=== PATIENT | male | born 1985 | race Caucasian/White ===

== ENCOUNTER 2016-12-14 10:39 | Emergency (ER) | payer BC, OTHER ==
[~2016-12-14] VITALS: Ht 182.9 cm; Wt 91.4 kg
[2016-12-14 10:43] VITALS: TEMP 36.8; Ht 182.9 cm; Wt 91.4 kg
[2016-12-14] MEDS ORDERED: AMOXICILLIN/CLAVULANATE TAB 875 MG TAB PO ONE (11:15)
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
[2016-12-14] MEDS ORDERED: AMOX875T PO (14:25)
[2016-12-14] MEDS ORDERED: OXYC1TAB3 PO (14:25)
[2016-12-14 14:50] VITALS: BP 160/97; PULSE 94; O2SAT 98
[2017-05-04] MEDS ORDERED: OXYC1TAB3 PO (07:52)
[2017-05-04] MEDS ORDERED: CIPR-255 PO (07:52)
[2017-05-04] MEDS ORDERED: METR-163 PO (07:52)
== END 2016-12-14 14:53 | disposition home or self-care (01) ==
LOC: C.EDB 10:41 → C.EDC 14:53
DX: S02.32XA Fracture of orbital floor, left side, initial encounter for closed fracture (principal); T79.7XXA Traumatic subcutaneous emphysema, initial encounter; S00.83XA Contusion of other part of head, initial encounter; W22.8XXA Striking against or struck by other objects, initial encounter; F17.200 Nicotine dependence, unspecified, uncomplicated

== ENCOUNTER 2017-03-27 18:55 | Emergency (ER) | payer BC ==
[~2017-03-27] VITALS: Ht 182.9 cm; Wt 93.1 kg
[~2017-03-27 18:55] MED LIST: OXYC1TAB3 PO
[2017-03-27 18:59] VITALS: TEMP 36.8; Ht 182.9 cm; Wt 93.1 kg
[2017-03-27] MEDS ORDERED: OXYCODONE/ACETAMINOPHEN 5-325 TAB PO STA (19:43)
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
--- NOTE | 2017-03-27 20:35 | DIAGNOSTIC IMAGING REPORT ---
MAXILLOFACIAL CT WITHOUT CONTRAST CLINICAL HISTORY: Trauma. Possible mandibular fracture. COMPARISON STUDY: Maxillofacial CT December 14, 2016. TECHNIQUE: A maxillofacial CT was performed without IV contrast. Coronal and sagittal reformats were viewed. FINDINGS: Note is made of an acute minimally displaced, comminuted left parasymphyseal mandibular fracture which extends between the left lateral mandibular incisor and the canine. In addition, there is an acute nondisplaced fracture of the left mandibular ramus. Alignment of the temporomandibular joints is anatomic. There are no skull base fractures. There is a defect within the left orbital floor which is old. The globes are intact. There is mild mucosal thickening of the sinuses. IMPRESSION: Acute minimally displaced mildly comminuted left parasymphyseal mandibular fracture and nondisplaced left mandibular ramus fracture. Electronically signed by: Jimenez Pierre M.D. 03/27/2017 8:34 PM Dictated Date/Time: 03/27/2017 8:26 PM
[2017-03-27] MEDS ORDERED: AMOX875T PO (21:24)
[2017-03-27] MEDS ORDERED: OXYC-57 PO (21:24)
[2017-03-27] MEDS ORDERED: PERCOCET HOME PACK PO ONE (21:30)
[2017-03-27] MEDS ORDERED: CEFTRIAXONE SOD 350MG/ML 1 GM VIAL IM ONE (21:30)
[2017-03-27 21:55] VITALS: BP 153/105; PULSE 76; O2SAT 98
[2017-05-04] MEDS ORDERED: OXYC1TAB3 PO (07:52)
[2017-05-04] MEDS ORDERED: CIPR-255 PO (07:52)
[2017-05-04] MEDS ORDERED: METR-163 PO (07:52)
== END 2017-03-27 21:55 | disposition home or self-care (01) ==
LOC: C.EDB 18:56 → C.EDD 21:55
DX: S02.609A Fracture of mandible, unspecified, initial encounter for closed fracture (principal); Y09 Assault by unspecified means

== ENCOUNTER 2017-05-01 09:25 | Emergency (ER) | payer BC ==
[~2017-05-01] VITALS: Ht 182.9 cm; Wt 88.2 kg
[~2017-05-01 09:25] MED LIST changes: +OXYC-57 PO; -OXYC1TAB3 PO
[2017-05-01 09:27] VITALS: TEMP 36.4; Ht 182.9 cm; Wt 88.2 kg
[2017-05-01] MEDS ORDERED: ONDANSETRON INJ 2 MG/ML 2 ML VIAL IV STA (09:58)
[2017-05-01] MEDS ORDERED: MoRPHine SULFATE 4 MG/ML 1 ML CARP\\VIAL IV STA (09:58)
[2017-05-01] MEDS ORDERED: KETOROLAC TROMETHAMINE 30 MG/ML VIAL IV STA (09:58)
[2017-05-01] MEDS ORDERED: SODIUM CHLORIDE 0.9% 1000ML 1,000 ML IV STA (09:58)
--- NOTE | 2017-05-01 10:08 | EMERGENCY ROOM VISIT NOTE ---
History First contact with patient: 09:46 Chief Complaint: ABDOMINAL PAIN Stated Complaint: STOMACH PAIN Nursing Triage Summary: pt reports left lower abd pain started at 0530 this am awoke him from sleep. did not take anything for pain History of Present Illness The patient is a 31 year old male who presents to the Emergency Room with complaints of "stomach pain". The patient states that acutely, he woke this morning around 5:30 AM with left lower quadrant abdominal pain. This is associated with radiation into his left testicle. He describes as a shooting pain, rated as a 65/10. He states that recently he fractured his jaw, and had to take antibiotics and his also has C. difficile. However, he denies any nausea, vomiting, fevers, chills or diarrhea. He did have to recent bowel movements of which were normal for him. He denies any night sweats, or chest pain. He notes that he has difficulty achieving a position that is comfortable. And he also denies any constipation. He has had no pain medication thus far today. Review of Systems A complete 10-point Review of Systems was discussed with the patient, with pertinent positives and negatives listed in the History of Present Illness. All remaining Review of Systems questions can be considered negative unless otherwise specified. Past Medical/Surgical History Medical Problems: (1) Finger laceration (2) Vasovagal syncope (3) Vasovagal syncope Family History Patient reports no known family medical history. Unremarkable. Social History Smoking Status: Never Smoker Alcohol Use: occasionally Drug Use: none Housing Status: lives with significant other Occupation Status: employed Current/Historical Medications Scheduled Amoxicillin & Pot Clavulanate (Augmentin 875-125 mg), 1 TAB PO BID Ondasetron Odt (Zofran Odt), 4 MG SL Q6H Scheduled PRN Oxycodone Ir (Roxicodone Ir), 1-2 TAB PO Q4H PRN for Pain Allergies Coded Allergies: No Known Allergies (Unverified , 05/01/17) Physical Exam Vital Signs Date Time Temp Pulse Resp B/P (MAP) Pulse Ox O2 Delivery O2 Flow Rate FiO2 05/01/17 11:30 63 18 132/71 100 Room Air 05/01/17 09:27 36.4 90 18 125/74 96 Room Air Physical Exam VITAL SIGNS - Vital signs and nursing notes were reviewed. Stable. GENERAL - 31-year-old male appearing his stated age who is in no acute distress. Communicates well with provider and answers questions appropriately. SKIN - Without rashes. No petechial rash. HEAD - NC/AT. EYES - PERRL with EOMI bilaterally. Sclera anicteric. EARS - No deformities of external structures noted on gross examination bilaterally. NOSE - Midline and without cyanosis. No epistaxis or purulent drainage noted. Septum midline without deviation or septal hematoma noted. MOUTH/OROPHARYNX - Without perioral cyanosis. Buccal mucosa pink and moist and without leukoplakia. Tongue midline with equal elevation of palate bilaterally. No tonsillar hypertrophy, erythema, or exudates noted. NECK - Neck with FROM. Supple to palpation. No lymphadenopathy noted. No nuchal rigidity. LUNGS - Chest wall symmetric without accessory muscle use, intercostals retractions, or central cyanosis. Normal vesicular breath sounds CTA B/L. No wheezes, rales, or rhonchi appreciated. CARDIAC - RRR with S1/S2. No murmur, rubs, or gallops appreciated. ABDOMEN - Abdominal contour without pulsations or visible masses. BS normoactive all four quadrants. There is LLQ abdominal tenderness. No palpable masses, hepatosplenomegaly, or ascites noted. EXTREMITIES - No clubbing or peripheral cyanosis. No pretibial edema present. NEUROLOGIC - Cranial nerves II through XII grossly intact. Sensory intact to light touch throughout. . PSYCH - A&O and cooperates fully with examiner. Pt is very pleasant and interacts well with examiner. Medical Decision & Procedures ER Provider Diagnostic Interpretation: CT SCAN OF THE ABDOMEN AND PELVIS WITHOUT IV CONTRAST CLINICAL HISTORY: Left lower quadrant abdominal pain. COMPARISON STUDY: No priors. TECHNIQUE: CT scan of the abdomen and pelvis is performed from the lung bases to the proximal femora. Images are reviewed in the axial, sagittal, and coronal planes. IV contrast was not administered for this examination as per the referring clinician. Note that the examination was performed in suboptimal fashion without oral and IV contrast. Automated dose control exposure was utilized. A dose lowering technique was utilized adhering to the principles of ALARA. CT DOSE: 1170.22 mGy.cm FINDINGS: Lung bases: The heart is normal in size and without pericardial effusion. The lung bases are clear noting left basilar atelectasis. Liver: The unenhanced liver is normal in size and contour. The liver demonstrates diffusely diminished attenuation consistent with hepatic steatosis. Fatty sparing is seen adjacent to gallbladder fossa. There is no intrahepatic biliary ductal dilatation. Gallbladder: Unremarkable. Spleen: Normal in size and attenuation. Pancreas: Unremarkable. Adrenal glands: Unremarkable. Kidneys: The unenhanced kidneys are normal in size and without hydronephrosis. There are no renal calculi identified. There is no evidence of contour deforming renal mass lesion. Abdominal vasculature: The abdominal aorta is normal in course and caliber. Bowel: The small bowel and colon are normal in course and caliber. There is mild diverticulosis of left colon. There is wall thickening with pericolonic inflammation and trace fluid seen involving the distal descending/proximal sigmoid colon consistent with acute diverticulitis. There is no evidence of abscess on this unenhanced examination. The appendix is well-visualized and normal. Peritoneum: There is no intraperitoneal free air or abdominal ascites. There is a small fat-containing umbilical hernia. Lymphadenopathy: None. Pelvic viscera: The bladder, prostate, and seminal vesicles are normal as visualized. Skeletal structures: No lytic or blastic lesions are seen. IMPRESSION: 1. Suboptimal examination without oral and IV contrast. 2. Findings are consistent with acute diverticulitis involving the distal descending/proximal sigmoid colon. No intraperitoneal free air is seen and there is no evidence of diverticular abscess. 3. Hepatic steatosis. Electronically signed by: Castro Islas M.D. 05/01/2017 11:31 AM Dictated Date/Time: 05/01/2017 11:17 AM Laboratory Results 05/01/17 09:59 Red Blood Count 4.91, Mean Corpuscular Volume 86.4, Mean Corpuscular Hemoglobin 29.5, Mean Corpuscular Hemoglobin Concent 34.2, Mean Platelet Volume 10.5, Neutrophils (%) (Auto) 72.9, Lymphocytes (%) (Auto) 18.2, Monocytes (%) (Auto) 7.6, Eosinophils (%) (Auto) 0.8, Basophils (%) (Auto) 0.2, Neutrophils # (Auto) 7.80, Lymphocytes # (Auto) 1.95, Monocytes # (Auto) 0.81, Eosinophils # (Auto) 0.09, Basophils # (Auto) 0.02 05/01/17 09:59 Test 05/01/17 09:59 05/01/17 10:20 White Blood Count 10.70 K/uL (4.8-10.8) Red Blood Count 4.91 M/uL (4.7-6.1) Hemoglobin 14.5 g/dL (14.0-18.0) Hematocrit 42.4 % (42-52) Mean Corpuscular Volume 86.4 fL (80-100) Mean Corpuscular Hemoglobin 29.5 pg (25-34) Mean Corpuscular Hemoglobin Concent 34.2 g/dl (32-36) Platelet Count 215 K/uL (130-400) Mean Platelet Volume 10.5 fL (7.4-10.4) Neutrophils (%) (Auto) 72.9 % Lymphocytes (%) (Auto) 18.2 % Monocytes (%) (Auto) 7.6 % Eosinophils (%) (Auto) 0.8 % Basophils (%) (Auto) 0.2 % Neutrophils # (Auto) 7.80 K/uL (1.4-6.5) Lymphocytes # (Auto) 1.95 K/uL (1.2-3.4) Monocytes # (Auto) 0.81 K/uL (0.11-0.59) Eosinophils # (Auto) 0.09 K/uL (0-0.5) Basophils # (Auto) 0.02 K/uL (0-0.2) RDW Standard Deviation 38.9 fL (36.4-46.3) RDW Coefficient of Variation 12.2 % (11.5-14.5) Immature Granulocyte % (Auto) 0.3 % Immature Granulocyte # (Auto) 0.03 K/uL (0.00-0.02) Prothrombin Time 10.3 SECONDS (9.0-12.0) Prothromb Time International Ratio 1.0 (0.9-1.1) Activated Partial Thromboplast Time 26.3 SECONDS (21.0-31.0) Partial Thromboplastin Ratio 1.0 Anion Gap 7.0 mmol/L (3-11) Est Creatinine Clear Calc Drug Dose 161.0 ml/min Estimated GFR () 143.3 Estimated GFR (Non- 123.6 BUN/Creatinine Ratio 16.3 (10-20) Calcium Level 9.1 mg/dl (8.5-10.1) Magnesium Level 1.8 mg/dl (1.8-2.4) Total Bilirubin 0.8 mg/dl (0.2-1) Aspartate Amino Transf (AST/SGOT) 13 U/L (15-37) Alanine Aminotransferase (ALT/SGPT) 31 U/L (12-78) Alkaline Phosphatase 104 U/L (45-117) Total Protein 6.9 gm/dl (6.4-8.2) Albumin 3.9 gm/dl (3.4-5.0) Globulin 3.0 gm/dl (2.5-4.0) Albumin/Globulin Ratio 1.3 (0.9-2) Urine Color YELLOW Urine Appearance CLEAR (CLEAR) Urine pH 5.5 (4.5-7.5) Urine Specific [place] 1.019 (1.000-1.030) Urine Protein NEG (NEG) Urine Glucose (UA) TRACE (NEG) Urine Ketones NEG (NEG) Urine Occult Blood TRACE (NEG) Urine Nitrite NEG (NEG) Urine Bilirubin NEG (NEG) Urine Urobilinogen NEG (NEG) Urine Leukocyte Esterase NEG (NEG) Urine WBC (Auto) 0 /hpf (0-5) Urine RBC (Auto) 0-4 /hpf (0-4) Urine Hyaline Casts (Auto) 1-5 /lpf (0-5) Urine Epithelial Cells (Auto) 0-5 /lpf (0-5) Urine Bacteria (Auto) NEG (NEG) Medications Administered Medications (Trade) Dose Ordered Sig/Genet Route Start Time Stop Time Status Last Admin Dose Admin Ketorolac Tromethamine (Toradol Inj) 30 mg NOW STAT IV 05/01/17 09:58 05/01/17 10:04 DC 05/01/17 10:19 30 MG Morphine Sulfate (MoRPHine SULFATE INJ) 4 mg NOW STAT IV 05/01/17 09:58 05/01/17 10:04 DC 05/01/17 10:20 4 MG Ondansetron HCl (Zofran Inj) 4 mg NOW STAT IV 05/01/17 09:58 05/01/17 10:04 DC 05/01/17 10:19 4 MG Sodium Chloride 1,000 ml @ 999 mls/hr Q1H1M STAT IV 05/01/17 09:58 05/01/17 10:58 DC 05/01/17 10:18 999 MLS/HR Medical Decision Patient was seen and evaluated as above. After obtaining a thorough history and physical examination IV access is initiated, and the above workup was performed. The patient presents to us today with left lower quadrant abdominal pain of sudden onset at 5 AM this morning. He has a noncontributory past medical and family history. There is no history of renal calculi. Patient was given morphine and Zofran here as well as Toradol for his pain. He was reevaluated and is feeling pain-free. CBC reveals no leukocytosis or anemia. Coags negative. Chemistry panel reveals chloride 108, random glucose of 102, AST low at 13. Urine reveals trace occult blood. He is to follow up regarding this as he is a smoker. Abdomen and pelvis CT reveal diverticulitis. No evidence of abscess. Noncontrast study was obtained to evaluate for renal calculi. He was offered inpatient management secondary to a lot of pain had upon presentation, but respectfully declined noting that he would prefer to be at home and return if worsening. He'll be discharged home on Augmentin as well as pain medication. Case was discussed with the attending physician. He is to follow up with family doctor regarding today's visit. He was educated upon worrisome symptoms which to return, educated upon incidental findings, had questions on discharge, and was discharged home in good condition. In evaluation treatment this patient following differential diagnoses were entertained: Renal calculi, acute diverticulitis, epiploic appendicitis, mesenteric adenitis, mesenteric ischemia, among others. Prior to the end of my shift, I was called by the patient who noted that he was feeling nauseated, and was vomiting. He requested Zofran as he has this here in the emergency department as it had been beneficial for him. I agreed to write a prescription, and gave him the instructions verbally. I informed him however that if he has worsening symptoms he certainly should return. He verbalized understanding. Impression Primary Impression: Acute diverticulitis Departure Information Dispostion Home / Self-Care Condition GOOD Prescriptions Ondasetron Odt (ZOFRAN ODT) 4 Mg Tab 4 MG SL Q6H for Nausea, #20 TAB Prov: Gerber Lea PA-C 05/01/17 Oxycodone Ir (Roxicodone Ir) 5 Mg Tab 1-2 TAB PO Q4H Y for Pain, #15 TAB For Initial Treatment Prov: Gerber Lea PA-C 05/01/17 Amoxicillin & Pot Clavulanate (Augmentin 875-125 mg) 1 Tab Tab 1 TAB PO BID for 10 Days, #20 TAB Prov: Gerber Lea PA-C 05/01/17 Referrals No Doctor, Assigned (PCP) Patient Instructions Diverticulitis Dc, ED Andrez Beltran, My [facility] Additional Instructions You have been treated in the Emergency Department your Abdominal Pain. Laboratory results and imaging studies have indicated you have was called acute diverticulitis. Please refer to attached handouts regarding bland diet and diverticulitis. You were prescribed Augmentin. This is one tablet every 12 hours for 10 days. This is an antibiotic. You have been prescribed Oxy IR to be used for pain control. This is a narcotic medication. You cannot drive or consume alcohol while on this medicine. This medicine should only be used for pain that cannot be controlled with over-the- counter pain medicines. For pain control, you can use the following [id number] medicines (if >12 yo): - Regular strength (325mg/tab) Tylenol (acetaminophen) 2 tabs every 4-6 hours as needed. Do not exceed 12 tablets in a 24 hour period. Avoid taking more than 3 grams (3000 mg) of Tylenol per day. This includes any other sources of acetaminophen you may take on a regular basis. - Regular strength (200 mg/tab) Advil (ibuprofen) 1-2 tabs every 4-6 hours as needed. Do not exceed a dose of 3200 mg per day. Drink plenty of water and stay well hydrated. As with any trip to the Emergency Department, you should follow-up with your Primary Care Provider from today's visit. Please also follow-up for the blood in the urine. Return to the emergency department if your symptoms persist despite treatment plan outlined above or if the following symptoms occur: increased fevers, chills , worsening nausea/vomiting, blood in your stool or urine. Please return to emergency department with any/consent symptoms.
[2017-05-01 10:16] LABS: BASO % 0.2 %; BASO ABS # 0.02 K/uL (0-0.2); COMPLETE YES; EOS % 0.8 %; HEMATOCRIT 42.4 % (42-52); IG% 0.3 %; LYMPH % 18.2 %; LYMPH ABS # 1.95 K/uL (1.2-3.4); MEAN CELL VOLUME 86.4 fL (80-100); MEAN CORPUSCULAR HEMOGLOBIN 29.5 pg (25-34); MEAN CORPUSCULAR HGB CONC 34.2 g/dl (32-36); MEAN PLATELET VOLUME 10.5 fL (7.4-10.4); MONO % 7.6 %; NEUT % 72.9 %; PLATELET COUNT 215 K/uL (130-400); RED BLOOD COUNT 4.91 M/uL (4.7-6.1)
[2017-05-01 10:25] LABS: PROTHROMBIN TIME (PATIENT) 10.3 SECONDS (9.0-12.0)
[2017-05-01 10:42] LABS: BUN/CREATININE RATIO 16.3 (10-20); CALCIUM 9.1 mg/dl (8.5-10.1); CREATININE 0.73 mg/dl (0.60-1.40); MAGNESIUM 1.8 mg/dl (1.8-2.4)
[2017-05-01 10:45] LABS: ALB/GLOB RATIO 1.3 (0.9-2)
[2017-05-01 10:46] LABS: URINE APPEARANCE CLEAR (CLEAR); URINE BILIRUBIN NEG (NEG); URINE COLOR YELLOW; URINE EPITHELIAL CELL AUTO 0-5 /lpf (0-5); URINE NITRITE NEG (NEG); URINE PH 5.5 (4.5-7.5); URINE SPECIFIC GRAVITY 1.019 (1.000-1.030); UROBILINOGEN NEG (NEG); ZZUR CULT IF INDIC CLEAN CATCH NO
[2017-05-01 10:48] LABS: MANUAL MICROSCOPIC REQUIRED? NO; REVIEW REQ? NO
[2017-05-01 11:30] VITALS: BP 132/71; PULSE 63; O2SAT 100
--- NOTE | 2017-05-01 11:33 | DIAGNOSTIC IMAGING REPORT ---
CT SCAN OF THE ABDOMEN AND PELVIS WITHOUT IV CONTRAST CLINICAL HISTORY: Left lower quadrant abdominal pain. COMPARISON STUDY: No priors. TECHNIQUE: CT scan of the abdomen and pelvis is performed from the lung bases to the proximal femora. Images are reviewed in the axial, sagittal, and coronal planes. IV contrast was not administered for this examination as per the referring clinician. Note that the examination was performed in suboptimal fashion without oral and IV contrast. Automated dose control exposure was utilized. A dose lowering technique was utilized adhering to the principles of ALARA. CT DOSE: 1170.22 mGy.cm FINDINGS: Lung bases: The heart is normal in size and without pericardial effusion. The lung bases are clear noting left basilar atelectasis. Liver: The unenhanced liver is normal in size and contour. The liver demonstrates diffusely diminished attenuation consistent with hepatic steatosis. Fatty sparing is seen adjacent to gallbladder fossa. There is no intrahepatic biliary ductal dilatation. Gallbladder: Unremarkable. Spleen: Normal in size and attenuation. Pancreas: Unremarkable. Adrenal glands: Unremarkable. Kidneys: The unenhanced kidneys are normal in size and without hydronephrosis. There are no renal calculi identified. There is no evidence of contour deforming renal mass lesion. Abdominal vasculature: The abdominal aorta is normal in course and caliber. Bowel: The small bowel and colon are normal in course and caliber. There is mild diverticulosis of left colon. There is wall thickening with pericolonic inflammation and trace fluid seen involving the distal descending/proximal sigmoid colon consistent with acute diverticulitis. There is no evidence of abscess on this unenhanced examination. The appendix is well-visualized and normal. Peritoneum: There is no intraperitoneal free air or abdominal ascites. There is a small fat-containing umbilical hernia. Lymphadenopathy: None. Pelvic viscera: The bladder, prostate, and seminal vesicles are normal as visualized. Skeletal structures: No lytic or blastic lesions are seen. IMPRESSION: 1. Suboptimal examination without oral and IV contrast. 2. Findings are consistent with acute diverticulitis involving the distal descending/proximal sigmoid colon. No intraperitoneal free air is seen and there is no evidence of diverticular abscess. 3. Hepatic steatosis. Electronically signed by: Castro Islas M.D. 05/01/2017 11:31 AM Dictated Date/Time: 05/01/2017 11:17 AM
[2017-05-01] MEDS ORDERED: AMOX875T PO (11:48)
[2017-05-01] MEDS ORDERED: OXYC1TAB3 PO (11:48)
[2017-05-01] MEDS ORDERED: ONDA4TAB10 SL (16:52)
[2017-05-04] MEDS ORDERED: CIPR-255 PO (07:52)
[2017-05-04] MEDS ORDERED: METR-163 PO (07:52)
[2017-05-04] MEDS ORDERED: OXYC1TAB3 PO (07:52)
== END 2017-05-01 12:00 | disposition home or self-care (01) ==
LOC: C.EDB 09:27
DX: K57.92 Diverticulitis of intestine, part unspecified, without perforation or abscess without bleeding (principal)

== ENCOUNTER 2017-05-02 17:21 | Inpatient (IN) | payer BC ==
[~2017-05-02] VITALS: Ht 182.9 cm; Wt 90.0 kg
[~2017-05-02 17:21] MED LIST changes: +AMOX875T PO; +ONDA4TAB10 SL; -OXYC-57 PO; +OXYC1TAB3 PO
[2017-05-02] MEDS ORDERED: SODIUM CHLORIDE 0.9% 1000ML 1,000 ML IV STA ×2 (18:06→19:16)
[2017-05-02] MEDS ORDERED: PIPERACILLIN/TAZOBACTAM 3.375 GM/100ML D5W IV STA (18:14)
[2017-05-02 18:48] LABS: BASO % 0.1 %; BASO ABS # 0.01 K/uL (0-0.2); COMPLETE YES; EOS % 0.3 %; HEMATOCRIT 38.1 % (42-52); IG% 0.1 %; LYMPH % 12.5 %; LYMPH ABS # 1.43 K/uL (1.2-3.4); MEAN CELL VOLUME 87.2 fL (80-100); MEAN CORPUSCULAR HEMOGLOBIN 30.4 pg (25-34); MEAN CORPUSCULAR HGB CONC 34.9 g/dl (32-36); MEAN PLATELET VOLUME 10.4 fL (7.4-10.4); MONO % 7.9 %; NEUT % 79.1 %; PLATELET COUNT 203 K/uL (130-400); RED BLOOD COUNT 4.37 M/uL (4.7-6.1); WHITE BLOOD COUNT 11.46 K/uL (4.8-10.8)
[2017-05-02 19:09] LABS: CALCIUM 8.7 mg/dl (8.5-10.1); CREATININE 0.84 mg/dl (0.60-1.40); POTASSIUM 3.3 mmol/L (3.5-5.1)
[2017-05-02] MEDS ORDERED: ONDANSETRON INJ 2 MG/ML 2 ML VIAL IV STA (19:15)
[2017-05-02] MEDS ORDERED: MoRPHine SULFATE 4 MG/ML 1 ML CARP\\VIAL IV STA ×2 (19:15→22:53)
[2017-05-02 19:28] LABS: ALB/GLOB RATIO 1.2 (0.9-2)
--- NOTE | 2017-05-02 19:35 | DIAGNOSTIC IMAGING REPORT ---
CHEST AND ABDOMEN 2 VIEWS HISTORY: Recent dx of diverticulitis. Worsening generalized abdominal pain, tachycardic. COMPARISON: Abdomen and pelvis CT 05/01/2017. FINDINGS: The lungs are clear. The cardiomediastinal silhouette is within normal limits. There is no pneumoperitoneum or pneumatosis. The bowel gas pattern is unremarkable. No evidence for bowel obstruction. No renal or ureteral calculi. IMPRESSION: No acute cardiopulmonary process. No evidence for bowel obstruction. Electronically signed by: Kishan Vergara M.D. 05/02/2017 7:34 PM Dictated Date/Time: 05/02/2017 7:31 PM
[2017-05-02 23:24] VITALS: Ht 182.9 cm; Wt 90.0 kg
[2017-05-02] MEDS ORDERED: POTASSIUM CHLORIDE 10 MEQ TABCR PO STA (23:25)
[2017-05-02] MEDS ORDERED: OPTIRAY 320 IV PRN (23:45)
[2017-05-03] VITALS (7 sets, daily range): BP systolic 94–122; BP diastolic 56–74; PULSE 79–93; TEMP 36.5–37.2; O2SAT 92–96
[2017-05-03 00:05] LABS: MAGNESIUM 1.8 mg/dl (1.8-2.4)
[2017-05-03 00:46] LABS: THYROID STIMULATING HORMONE 1.39 uIu/ml (0.300-4.500)
[2017-05-03] MEDS ORDERED: TRAMADOL HCL 50 MG TAB PO PRN (01:00)
[2017-05-03] MEDS ORDERED: PROMETHAZINE HCL INJ 12.5 MG in SODIUM CHLORIDE 0.9% 50ML 50 ML IV PRN (01:00)
[2017-05-03] MEDS ORDERED: ONDANSETRON INJ 2 MG/ML 2 ML VIAL IV PRN (01:00)
[2017-05-03] MEDS ORDERED: ACETAMINOPHEN 325 MG TAB PO PRN (01:00)
[2017-05-03] MEDS ORDERED: KETOROLAC TROMETHAMINE 30 MG/ML VIAL IV PRN (01:00)
--- NOTE | 2017-05-03 01:13 | EMERGENCY ROOM VISIT NOTE ---
History First contact with patient: 17:58 Chief Complaint: ABDOMINAL PAIN Stated Complaint: ABDOMINAL/BACK PAIN, INTESTINE INFECTION Nursing Triage Summary: pt states,"I have a infection in my intestines and was told yesterday if the pain worsens to come back to ER." pt c/o worsening abdominal pain, back pain, nausea. History of Present Illness The patient is a 31 year old male who presents to the Emergency Room via private vehicle with complaints of "abdominal pain, back pain, intestinal infection". The patient states that he was seen here yesterday, and diagnosed with acute diverticulitis, and states that yesterday he received a prescription for Zofran which helped him, however the pain is now increasing, and is radiating was back. He rates the pain as a 10/10 left lower quadrant, the back pain as a 6/10. He has not had a bowel movement since yesterday's episode. He notes he had a fever last night of 101F orally. He has tried the pain medication with some relief. He has been taking stool softener as well. Review of Systems A complete 10-point Review of Systems was discussed with the patient, with pertinent positives and negatives listed in the History of Present Illness. All remaining Review of Systems questions can be considered negative unless otherwise specified. Past Medical/Surgical History Medical Problems: (1) Diverticulitis (2) Finger laceration (3) Vasovagal syncope (4) Vasovagal syncope Family History Patient reports no known family medical history. Social History Smoking Status: Current Some Day Smoker Alcohol Use: occasionally Drug Use: none Housing Status: lives with significant other Occupation Status: employed Current/Historical Medications Scheduled Amoxicillin & Pot Clavulanate (Augmentin 875-125 mg), 1 TAB PO BID Ondasetron Odt (Zofran Odt), 4 MG SL Q6H Scheduled PRN Oxycodone Ir (Roxicodone Ir), 1-2 TAB PO Q4H PRN for Pain Allergies Coded Allergies: No Known Allergies (Unverified , 05/01/17) Physical Exam Vital Signs Date Time Temp Pulse Resp B/P (MAP) Pulse Ox O2 Delivery O2 Flow Rate FiO2 05/02/17 23:24 Room Air 05/02/17 23:09 118 16 121/70 98 Room Air 05/02/17 21:38 107 16 128/90 96 Room Air 05/02/17 19:38 112 16 120/79 97 Room Air 05/02/17 18:33 121 22 112/70 95 Room Air 05/02/17 18:32 95 Room Air 05/02/17 18:20 121 05/02/17 17:25 37.3 125 18 133/93 95 Room Air Physical Exam VITAL SIGNS - Vital signs and nursing notes were reviewed. Afebrile, normotensive, tachycardic at a rate of 125 bpm, and is saturating well on room air 95%. GENERAL -31-year-old male appearing his stated age who is in no acute distress. Communicates well with provider and answers questions appropriately. SKIN - Without rashes. No petechial rashes. HEAD - NC/AT. CARDIAC - RRR with S1/S2. No murmur, rubs, or gallops appreciated. ABDOMEN - Abdominal contour without pulsations or visible masses. BS normoactive all four quadrants. Left lower quadrant tenderness. No palpable masses, hepatosplenomegaly, or ascites noted. Medical Decision & Procedures ER Provider Diagnostic Interpretation: CHEST AND ABDOMEN 2 VIEWS HISTORY: Recent dx of diverticulitis. Worsening generalized abdominal pain, tachycardic. COMPARISON: Abdomen and pelvis CT 05/01/2017. FINDINGS: The lungs are clear. The cardiomediastinal silhouette is within normal limits. There is no pneumoperitoneum or pneumatosis. The bowel gas pattern is unremarkable. No evidence for bowel obstruction. No renal or ureteral calculi. IMPRESSION: No acute cardiopulmonary process. No evidence for bowel obstruction. Electronically signed by: Kishan Vergara M.D. 05/02/2017 7:34 PM Dictated Date/Time: 05/02/2017 7:31 PM Laboratory Results 05/02/17 18:28 Red Blood Count 4.37, Mean Corpuscular Volume 87.2, Mean Corpuscular Hemoglobin 30.4, Mean Corpuscular Hemoglobin Concent 34.9, Mean Platelet Volume 10.4, Neutrophils (%) (Auto) 79.1, Lymphocytes (%) (Auto) 12.5, Monocytes (%) (Auto) 7.9, Eosinophils (%) (Auto) 0.3, Basophils (%) (Auto) 0.1, Neutrophils # (Auto) 9.06, Lymphocytes # (Auto) 1.43, Monocytes # (Auto) 0.91, Eosinophils # (Auto) 0.04, Basophils # (Auto) 0.01 05/02/17 18:28 Test 05/02/17 18:28 White Blood Count 11.46 K/uL (4.8-10.8) Red Blood Count 4.37 M/uL (4.7-6.1) Hemoglobin 13.3 g/dL (14.0-18.0) Hematocrit 38.1 % (42-52) Mean Corpuscular Volume 87.2 fL (80-100) Mean Corpuscular Hemoglobin 30.4 pg (25-34) Mean Corpuscular Hemoglobin Concent 34.9 g/dl (32-36) Platelet Count 203 K/uL (130-400) Mean Platelet Volume 10.4 fL (7.4-10.4) Neutrophils (%) (Auto) 79.1 % Lymphocytes (%) (Auto) 12.5 % Monocytes (%) (Auto) 7.9 % Eosinophils (%) (Auto) 0.3 % Basophils (%) (Auto) 0.1 % Neutrophils # (Auto) 9.06 K/uL (1.4-6.5) Lymphocytes # (Auto) 1.43 K/uL (1.2-3.4) Monocytes # (Auto) 0.91 K/uL (0.11-0.59) Eosinophils # (Auto) 0.04 K/uL (0-0.5) Basophils # (Auto) 0.01 K/uL (0-0.2) RDW Standard Deviation 39.5 fL (36.4-46.3) RDW Coefficient of Variation 12.2 % (11.5-14.5) Immature Granulocyte % (Auto) 0.1 % Immature Granulocyte # (Auto) 0.01 K/uL (0.00-0.02) Anion Gap 6.0 mmol/L (3-11) Est Creatinine Clear Calc Drug Dose 139.9 ml/min Estimated GFR () 135.2 Estimated GFR (Non- 116.7 BUN/Creatinine Ratio 15.0 (10-20) Lactic Acid Level 0.7 mmol/L (0.4-2.0) Calcium Level 8.7 mg/dl (8.5-10.1) Magnesium Level 1.8 mg/dl (1.8-2.4) Total Bilirubin 1.2 mg/dl (0.2-1) Aspartate Amino Transf (AST/SGOT) 8 U/L (15-37) Alanine Aminotransferase (ALT/SGPT) 24 U/L (12-78) Alkaline Phosphatase 86 U/L (45-117) Total Protein 6.9 gm/dl (6.4-8.2) Albumin 3.7 gm/dl (3.4-5.0) Globulin 3.2 gm/dl (2.5-4.0) Albumin/Globulin Ratio 1.2 (0.9-2) Thyroid Stimulating Hormone (TSH) 1.390 uIu/ml (0.300-4.500) Medications Administered Medications (Trade) Dose Ordered Sig/Genet Route Start Time Stop Time Status Last Admin Dose Admin Sodium Chloride 1,000 ml @ 999 mls/hr Q1H1M STAT IV 05/02/17 18:06 05/02/17 19:06 DC 05/02/17 18:34 999 MLS/HR Piperacillin Sod/ Tazobactam Sod (Zosyn Iv) 3.375 gm NOW STAT IV 05/02/17 18:14 05/02/17 18:16 DC 05/02/17 18:36 3.375 GM Morphine Sulfate (MoRPHine SULFATE INJ) 4 mg NOW STAT IV 05/02/17 19:15 05/02/17 19:16 DC 05/02/17 19:31 4 MG Ondansetron HCl (Zofran Inj) 4 mg NOW STAT IV 05/02/17 19:15 05/02/17 19:16 DC 05/02/17 19:31 4 MG Sodium Chloride 1,000 ml @ 200 mls/hr Q5H STAT IV 05/02/17 19:16 05/03/17 00:15 DC 05/02/17 19:31 200 MLS/HR Morphine Sulfate (MoRPHine SULFATE INJ) 4 mg NOW STAT IV 05/02/17 22:53 05/02/17 22:54 DC 05/02/17 23:07 4 MG Medical Decision Patient was seen and evaluated as above. After obtaining a thorough history and physical examination previous visit was reviewed. I personally took care of this patient yesterday. He was offered admission at that time, and declined noting that he would like to try outpatient management with the oral antibiotics and pain medication. He returns to us today tachycardic, increased abdominal pain and now back pain. He is afebrile on examination. He does appear to be more toxic compared to yesterday. He notes that staying here in the hospital would be not a problem however he is concerned about paying his bills. IV access was initiated, and the above workup was performed. CBC reveals leukocytosis of 11.46. Hemoglobin of 13.3. This has dropped. At one point in one day. Potassium has now dropped to 3.3. Bilirubin is now high at 1.2. This is 0.8 yesterday. He has vomiting 1. Lactate is normal. Cultures pending. TSH unremarkable. Chest with abdomen series was obtained to rule out perforation and was negative. I do not believe that re-CT at this time is appropriate. He was given morphine for his pain. He was given fluids and was persistently tachycardic. I do believe that inpatient management is warranted. Patient was able to make arrangements with his employer so that he could stay here for further management. He was in agreement to stay. He was given IV Zosyn for the diverticulitis. I consulted the hospitalist regarding his care. The patient has tried outpatient antibiotics, is now persistently tachycardic despite IV fluids, is vomiting, has been subjectively febrile, requiring IV pain medication. Case was discussed with the attending physician. Please refer to further documentation regarding his stay. In evaluation treatment this patient the following differential diagnoses were entertained: Perforation, worsening of the acute diverticulitis, sepsis, among others. Impression Primary Impression: Diverticulitis Additional Impressions: Anemia Hypokalemia Departure Information Referrals Arin Broussard M.D. (MEDICAL) (PCP) Patient Instructions My [facility] Problem Qualifiers
[2017-05-03] MEDS ORDERED: POTASSIUM CHLORIDE 10 MEQ TABCR ONE (01:39)
[2017-05-03] MEDS: MoRPHine SULFATE 4 MG/ML 1 ML CARP\\VIAL IV PRN ×3 (02:27→16:12)
[2017-05-03] MEDS: NSS + 20MEQ KCL 1000ML 1,000 ML IV SCH ×3 (02:27→22:25)
[2017-05-03] MEDS ORDERED: DOCUSATE SODIUM 100 MG CAP PO ONE (02:30)
[2017-05-03] MEDS ORDERED: POLYETHYLENE (MIRALAX) 17 GM PACK PO ONE (04:12)
[2017-05-03] MEDS ORDERED: NSS + 20MEQ KCL 1000ML 1,000 ML IV ONE (04:15)
[2017-05-03] MEDS ORDERED: POLYETHYLENE (MIRALAX) 17 GM PACK PO PRN (04:15)
[2017-05-03] MEDS: CIPROFLOXACIN / D5W 400 MG in PREMIXED IN D5W 200 ML IV SCH ×2 (05:46→18:27)
[2017-05-03] MEDS: METRONIDAZOLE / NSS 500 MG in PREMIXED NSS 100 ML IV SCH ×3 (05:46→21:24)
[2017-05-03 06:37] LABS: BASO % 0.2 %; BASO ABS # 0.02 K/uL (0-0.2); COMPLETE YES; EOS % 0.5 %; HEMATOCRIT 34.7 % (42-52); IG% 0.3 %; LYMPH ABS # 2.01 K/uL (1.2-3.4); MEAN CELL VOLUME 87.2 fL (80-100); MEAN CORPUSCULAR HEMOGLOBIN 30.9 pg (25-34); MEAN CORPUSCULAR HGB CONC 35.4 g/dl (32-36); MEAN PLATELET VOLUME 10.4 fL (7.4-10.4); MONO % 9.6 %; NEUT % 70.4 %; PLATELET COUNT 181 K/uL (130-400); RED BLOOD COUNT 3.98 M/uL (4.7-6.1); WHITE BLOOD COUNT 10.57 K/uL (4.8-10.8)
--- NOTE | 2017-05-03 06:41 | DIAGNOSTIC IMAGING REPORT ---
CT ABD/PELVIS IV CONTRAST ONLY CLINICAL HISTORY: Worsening abdominal pain COMPARISON STUDY: 05/01/2017 TECHNIQUE: Following the IV administration of 118 mL of Optiray-320, CT scan of the abdomen and pelvis was performed from the lung bases to the proximal femurs. Images are reviewed in the axial, sagittal, and coronal planes. IV contrast was administered without complication. A dose lowering technique was utilized adhering to the principles of ALARA. CT DOSE: 456.46 mGy.cm FINDINGS: Lower chest: There are bibasal atelectatic changes. Liver: The contrast-enhanced liver is normal in size, contour, and attenuation. There is no intrahepatic biliary ductal dilatation. The hepatic veins and portal veins are patent. Gallbladder: Unremarkable. Spleen: Normal in size and attenuation. Pancreas: Unremarkable. Adrenal glands: Unremarkable. Kidneys: There is a to small 7 mm right renal hypodensity, likely representing a cyst. Bowel: There are no transition zones indicate bowel obstruction. The appendix appears normal. There is bowel wall thickening involving the sigmoid colon at the descending sigmoid junction. There is infiltration the perisigmoid fat. The findings are indicative of acute diverticulitis. There are no fluid collections to indicate a peridiverticular abscess. Peritoneum: There is no intraperitoneal free air or abdominal ascites. Vasculature: The abdominal aorta is normal in course and caliber. Adenopathy: None. Pelvic viscera: The bladder, and pelvic viscera are unremarkable. Skeletal structures: No destructive osseous lesions are seen. IMPRESSION: Acute sigmoid diverticulitis, with slightly progressive peridiverticular inflammatory change. No evidence of peridiverticular abscess. Electronically signed by: Yayo Martinez M.D. 05/03/2017 6:40 AM Dictated Date/Time: 05/03/2017 6:37 AM
[2017-05-03 07:19] LABS: BLOOD UREA NITROGEN 9 mg/dl (7-18); BUN/CREATININE RATIO 14.3 (10-20); CALCIUM 8.4 mg/dl (8.5-10.1); CARBON DIOXIDE 25 mmol/L (21-32); CHLORIDE 108 mmol/L (98-107); CREATININE 0.65 mg/dl (0.60-1.40); GLUCOSE 83 mg/dl (70-99); POTASSIUM 3.9 mmol/L (3.5-5.1); SODIUM 140 mmol/L (136-145)
--- NOTE | 2017-05-03 07:24 | HISTORY & PHYSICAL EXAMINATION ---
DATE OF ADMISSION: 05/03/2017 PRIMARY CARE PHYSICIAN: Dr. Broussard (although he has not met him) CHIEF COMPLAINT: Worsening abdominal pain. HISTORY OF PRESENT ILLNESS: History obtained from the patient and records. Medical history significant for diverticulitis. Yesterday patient noted to have lower abdominal pain with nausea, constipation, Seen at the Emergency Room. CAT scan showed acute diverticulitis. The patient refused admission because he had to go back to work. Patient discharged on Augmentin Worsening pain despite compliance. Patient returned to the emergency room. Given Zosyn in the ER. MEDICAL HISTORY: As above. No previous endoscopies. HOME MEDICATIONS: Include Augmentin, oxycodone, Zofran. FAMILY HISTORY: Diverticulitis. No colon cancer as per the patient. 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 REVIEW OF SYSTEMS: As per HPI, all other ROS negative. PHYSICAL EXAMINATION: VITAL SIGNS: Blood pressure was noted to be 130/90, pulse rate 105, RR 18, temperature 37, sats 95 on room air. GENERAL: Notes to be slightly uncomfortable, pleasant, no respiratory distress. SKIN: Normal color. HEENT: [place] palpebral conjunctivae. Dry mucosa. NECK: No JVD. Supple. CHEST: Clear to auscultation. HEART: Tachycardic. ABDOMEN: Hypogastric tenderness. EXTREMITIES: No edema. No tenderness NEUROLOGIC: No gross focality. LABORATORY DATA: Hemoglobin was noted to be 13.3, hematocrit 38.1, white cell count 11.4, platelets 203. Sodium 136, potassium 3.4, chloride 105, CO2 of 28, BUN 13, creatinine 0.8, glucose 119. CT abdomen and pelvis initial read showed acute diverticulitis. Some worsening. ASSESSMENT: 1. Acute diverticulitis, failed outpatient treatment. 2. Hypokalemia secondary to illness. 3. Constipation. PLAN: GMF Clear liquids for now. Bowel rest. CipFlag joshuayl. Outpatient GI consult for colonoscopy. Replace potassium. Laxatives. DVT prophylaxis, SCDs. Full code. MTDD
[2017-05-03] MEDS ORDERED: DOCUSATE SODIUM 100 MG CAP PO SCH (09:00)
--- NOTE | 2017-05-03 11:04 | Progress Note ---
Subjective Date of Service: May 03, 2017. Subjective Pt evaluation today including: conversation w/ patient, physical exam, lab review, review of studies, review of inpatient medication list Saw/examined the patient in room 357 States he still has some abdominal pain, no fevers/chills Eager to go home; states he cannot stay in the hospital any longer Problem List Medical Problems: (1) Acute diverticulitis Status: Acute (2) Anemia Status: Acute (3) Facial contusion Status: Acute (4) Hypokalemia Status: Acute (5) Left sided chest pain Status: Acute (6) Mandibular fracture Status: Acute (7) Orbital floor fracture Status: Acute (8) Subcutaneous emphysema Status: Acute Review of Systems Constitutional: No fever, No chills Respiratory: No cough, No shortness of breath Cardiac: No chest pain, No edema, No palpitations Abdomen: + pain, No nausea, No vomiting, No diarrhea, No constipation, No GI bleeding Heme: No abnormal bleeding/bruising Medications Current Inpatient Medications Medications (Trade) Dose Ordered Sig/Genet Route Start Time Stop Time Status Last Admin Dose Admin Ioversol (Optiray 320) 100 ml UD PRN IV 05/02/17 23:45 05/06/17 23:44 Acetaminophen (Tylenol Tab) 650 mg Q4H PRN PO 05/03/17 01:00 06/02/17 00:59 05/03/17 02:26 650 MG Ketorolac Tromethamine (Toradol Inj) 30 mg Q6H PRN IV 05/03/17 01:00 05/08/17 00:59 05/03/17 03:30 30 MG Tramadol HCl (Ultram Tab) 25 mg Q6H PRN PO 05/03/17 01:00 06/02/17 00:59 Ondansetron HCl (Zofran Inj) 4 mg Q6H PRN IV 05/03/17 01:00 06/02/17 00:59 Promethazine HCl 12.5 mg/Sodium Chloride 50.5 ml @ 204 mls/hr Q6H PRN IV 05/03/17 01:00 06/02/17 00:59 Morphine Sulfate (MoRPHine SULFATE INJ) 4 mg Q4H PRN IV 05/03/17 01:00 05/17/17 00:59 05/03/17 08:06 4 MG Potassium Chloride/Sodium Chloride 1,000 ml @ 100 mls/hr Q10H IV 05/03/17 02:30 06/02/17 04:10 05/03/17 02:27 100 MLS/HR Docusate Sodium (coLACE CAP) 100 mg DAILY PO 05/03/17 09:00 06/02/17 08:59 05/03/17 08:30 100 MG Ciprofloxacin/ Dextrose 400 mg/ Prmx 200 ml @ 100 mls/hr Q12H IV 05/03/17 06:00 05/13/17 05:59 05/03/17 05:46 100 MLS/HR Metronidazole 500 mg/Prmx 100 ml @ 100 mls/hr Q8H IV 05/03/17 05:00 05/13/17 04:59 05/03/17 05:46 100 MLS/HR Polyethylene (Miralax Powder Packet) 17 gm DAILY PRN PO 05/03/17 04:15 06/02/17 04:14 Objective Vital Signs Date Time Temp Pulse Resp B/P (MAP) Pulse Ox O2 Delivery O2 Flow Rate FiO2 05/03/17 08:03 95 Room Air 05/03/17 08:00 36.5 79 16 94/56 (69) 95 Room Air 05/03/17 07:30 Room Air 05/03/17 03:32 37.1 05/03/17 01:45 Room Air 05/03/17 01:32 37.9 113 20 111/61 93 Room Air 05/02/17 23:24 Room Air 05/02/17 23:09 118 16 121/70 98 Room Air 05/02/17 21:38 107 16 128/90 96 Room Air 05/02/17 19:38 112 16 120/79 97 Room Air 05/02/17 18:33 121 22 112/70 95 Room Air 05/02/17 18:32 95 Room Air 05/02/17 18:20 121 05/02/17 17:25 37.3 125 18 133/93 95 Room Air Physical Exam General Appearance: no apparent distress Respiratory/Chest: chest non-tender, lungs clear, normal breath sounds, no respiratory distress, no accessory muscle use Cardiovascular: regular rate, rhythm, no edema, no murmur Abdomen: normal bowel sounds, soft, + tenderness Extremities: normal inspection, no pedal edema Laboratory Results Last 24 Hours Test 05/02/17 18:28 05/03/17 06:10 White Blood Count 11.46 K/uL 10.57 K/uL Red Blood Count 4.37 M/uL 3.98 M/uL Hemoglobin 13.3 g/dL 12.3 g/dL Hematocrit 38.1 % 34.7 % Mean Corpuscular Volume 87.2 fL 87.2 fL Mean Corpuscular Hemoglobin 30.4 pg 30.9 pg Mean Corpuscular Hemoglobin Concent 34.9 g/dl 35.4 g/dl Platelet Count 203 K/uL 181 K/uL Mean Platelet Volume 10.4 fL 10.4 fL Neutrophils (%) (Auto) 79.1 % 70.4 % Lymphocytes (%) (Auto) 12.5 % 19.0 % Monocytes (%) (Auto) 7.9 % 9.6 % Eosinophils (%) (Auto) 0.3 % 0.5 % Basophils (%) (Auto) 0.1 % 0.2 % Neutrophils # (Auto) 9.06 K/uL 7.45 K/uL Lymphocytes # (Auto) 1.43 K/uL 2.01 K/uL Monocytes # (Auto) 0.91 K/uL 1.01 K/uL Eosinophils # (Auto) 0.04 K/uL 0.05 K/uL Basophils # (Auto) 0.01 K/uL 0.02 K/uL RDW Standard Deviation 39.5 fL 39.6 fL RDW Coefficient of Variation 12.2 % 12.3 % Immature Granulocyte % (Auto) 0.1 % 0.3 % Immature Granulocyte # (Auto) 0.01 K/uL 0.03 K/uL Sodium Level 139 mmol/L 140 mmol/L Potassium Level 3.3 mmol/L 3.9 mmol/L Chloride Level 105 mmol/L 108 mmol/L Carbon Dioxide Level 28 mmol/L 25 mmol/L Anion Gap 6.0 mmol/L 7.0 mmol/L Blood Urea Nitrogen 13 mg/dl 9 mg/dl Creatinine 0.84 mg/dl 0.65 mg/dl Est Creatinine Clear Calc Drug Dose 139.9 ml/min 180.8 ml/min Estimated GFR () 135.2 > 150.0 Estimated GFR (Non- 116.7 129.6 BUN/Creatinine Ratio 15.0 14.3 Random Glucose 119 mg/dl 83 mg/dl Lactic Acid Level 0.7 mmol/L Calcium Level 8.7 mg/dl 8.4 mg/dl Magnesium Level 1.8 mg/dl Total Bilirubin 1.2 mg/dl Aspartate Amino Transf (AST/SGOT) 8 U/L Alanine Aminotransferase (ALT/SGPT) 24 U/L Alkaline Phosphatase 86 U/L Total Protein 6.9 gm/dl Albumin 3.7 gm/dl Globulin 3.2 gm/dl Albumin/Globulin Ratio 1.2 Thyroid Stimulating Hormone (TSH) 1.390 uIu/ml Assessment and Plan This is a 31 year old male with no significant PMH, presented on 05/01 to the ER and found to have acute diverticulitis - was sent home and returned due to the pain Acute Sigmoid Diverticulitis currently on IV Cipro and Flagyl no fevers/chills, no leukocytosis +abdominal pain persists currently on clears, which we should keep very eager to go home - told patient that it would benefit him to stay to receive more doses of IV antibiotics, but he is refusing Will speak to him later in the afternoon today (05/03) - to discuss staying DVT ppx ambulation FULL CODE
[2017-05-03] MEDS ORDERED: NURSING VERBAL MED ORDER ONE (16:45)
[2017-05-03] MEDS: OXYCODONE/ACETAMINOPHEN 5-325 TAB PO PRN ×2 (19:25→23:54)
[2017-05-04] MEDS: METRONIDAZOLE / NSS 500 MG in PREMIXED NSS 100 ML IV SCH (04:58)
[2017-05-04] MEDS: OXYCODONE/ACETAMINOPHEN 5-325 TAB PO PRN (05:53)
[2017-05-04] MEDS: CIPROFLOXACIN / D5W 400 MG in PREMIXED IN D5W 200 ML IV SCH (05:53)
[2017-05-04 07:08] LABS: HEMATOCRIT 33.5 % (42-52); MEAN CELL VOLUME 86.8 fL (80-100); MEAN CORPUSCULAR HEMOGLOBIN 30.6 pg (25-34); MEAN CORPUSCULAR HGB CONC 35.2 g/dl (32-36); MEAN PLATELET VOLUME 10.5 fL (7.4-10.4); PLATELET COUNT 183 K/uL (130-400); RED BLOOD COUNT 3.86 M/uL (4.7-6.1); WHITE BLOOD COUNT 6.06 K/uL (4.8-10.8)
[2017-05-04 07:33] LABS: BLOOD UREA NITROGEN 6 mg/dl (7-18); BUN/CREATININE RATIO 9.3 (10-20); CALCIUM 8.6 mg/dl (8.5-10.1); CARBON DIOXIDE 27 mmol/L (21-32); CHLORIDE 110 mmol/L (98-107); CREATININE 0.61 mg/dl (0.60-1.40); GLUCOSE 95 mg/dl (70-99); POTASSIUM 3.7 mmol/L (3.5-5.1); SODIUM 142 mmol/L (136-145)
[2017-05-04 07:43] VITALS: BP 142/90; PULSE 51; TEMP 36.8; O2SAT 98
[2017-05-04] MEDS ORDERED: METR-163 PO (07:52)
[2017-05-04] MEDS ORDERED: CIPR-255 PO (07:52)
[2017-05-04] MEDS ORDERED: OXYC1TAB3 PO (07:52)
--- NOTE | 2017-05-04 07:57 | Discharge Instructions ---
Discharge Instructions Date of Service May 04, 2017. Admission Reason for Admission: Diverticulitis Discharge Discharge Diagnosis / Problem: Acute sigmoid diverticulitis Discharge Goals Goal(s): Decrease discomfort, Improve function, Diagnostic testing, Therapeutic intervention Activity Recommendations Activity Limitations: per Instructions/Follow-up section . Instructions / Follow-Up Instructions / Follow-Up Please follow-up with Dr. Jenkins at [facility] on May 08 at 10:45AM Please take Cipro and Flagyl (antibiotics) for 7 days as prescribed - complete this course Please do not drive if taking Roxicodone IR Start with a full liquid diet and then continue a low fiber diet for 2 weeks You will need a colonoscopy in 6 weeks by GI Current Hospital Diet Patient's current hospital diet: Clear Liquid Diet Discharge Diet Recommended Diet: Full Liquid Diet, Low Fiber Diet Pending Studies Studies pending at discharge: no Medical Emergencies . Who to Call and When: Medical Emergencies: If at any time you feel your situation is an emergency, please call 911 immediately. . Non-Emergent Contact Non-Emergency issues call your: Primary Care Provider Call Non-Emergent contact if: you have a fever, temperature is above 100.5, your pain is not controlled, your pain is worsening, your pain is concerning you . . "Provider Documentation" section prepared by Shaggy Dubose. . VTE Core Measure Inpt VTE Proph given/why not?: Treatment not indicated [place] Drug Monitoring Program Search Results: patient reviewed within database, no issues identified Drug Monitoring Findings: Prescribed Roxicodone on 05/01 from ER physician at [facility] will prescribe 8 tablets on 05/04
--- NOTE | 2017-05-04 08:27 | Progress Note ---
Subjective Date of Service: May 04, 2017. Subjective Pt evaluation today including: conversation w/ patient, physical exam, lab review, review of studies, review of inpatient medication list Saw/examined the patient in room 357 Tolerating liquid diet Abdominal pain persists but improves with pain medications Afebrile, no other issues to note Very anxious and eager to get out of the hospital Problem List Medical Problems: (1) Acute diverticulitis Status: Acute (2) Anemia Status: Acute (3) Facial contusion Status: Acute (4) Hypokalemia Status: Acute (5) Left sided chest pain Status: Acute (6) Mandibular fracture Status: Acute (7) Orbital floor fracture Status: Acute (8) Subcutaneous emphysema Status: Acute Review of Systems Constitutional: No fever, No chills Respiratory: No cough, No sputum, No shortness of breath Cardiac: No chest pain Abdomen: + pain, No nausea, No vomiting, No diarrhea, No constipation, No GI bleeding Heme: No abnormal bleeding/bruising Medications Current Inpatient Medications Medications (Trade) Dose Ordered Sig/Genet Route Start Time Stop Time Status Last Admin Dose Admin Ioversol (Optiray 320) 100 ml UD PRN IV 05/02/17 23:45 05/06/17 23:44 Acetaminophen (Tylenol Tab) 650 mg Q4H PRN PO 05/03/17 01:00 06/02/17 00:59 05/03/17 02:26 650 MG Ketorolac Tromethamine (Toradol Inj) 30 mg Q6H PRN IV 05/03/17 01:00 05/08/17 00:59 05/03/17 03:30 30 MG Tramadol HCl (Ultram Tab) 25 mg Q6H PRN PO 05/03/17 01:00 06/02/17 00:59 05/03/17 13:20 25 MG Ondansetron HCl (Zofran Inj) 4 mg Q6H PRN IV 05/03/17 01:00 06/02/17 00:59 Promethazine HCl 12.5 mg/Sodium Chloride 50.5 ml @ 204 mls/hr Q6H PRN IV 05/03/17 01:00 06/02/17 00:59 Morphine Sulfate (MoRPHine SULFATE INJ) 4 mg Q4H PRN IV 05/03/17 01:00 05/17/17 00:59 05/03/17 16:12 4 MG Potassium Chloride/Sodium Chloride 1,000 ml @ 100 mls/hr Q10H IV 05/03/17 02:30 06/02/17 04:10 05/03/17 22:25 100 MLS/HR Docusate Sodium (coLACE CAP) 100 mg DAILY PO 05/03/17 09:00 06/02/17 08:59 05/03/17 08:30 100 MG Ciprofloxacin/ Dextrose 400 mg/ Prmx 200 ml @ 100 mls/hr Q12H IV 05/03/17 06:00 05/13/17 05:59 05/04/17 05:53 100 MLS/HR Metronidazole 500 mg/Prmx 100 ml @ 100 mls/hr Q8H IV 05/03/17 05:00 05/13/17 04:59 05/04/17 04:58 100 MLS/HR Polyethylene (Miralax Powder Packet) 17 gm DAILY PRN PO 05/03/17 04:15 06/02/17 04:14 Oxycodone/ Acetaminophen (Percocet 5-325mg Tab) 1 tab Q4H PRN PO 05/03/17 17:00 05/17/17 16:59 05/04/17 05:53 1 TAB Objective Vital Signs Date Time Temp Pulse Resp B/P (MAP) Pulse Ox O2 Delivery O2 Flow Rate FiO2 05/04/17 07:43 36.8 51 16 142/90 (107) 98 Room Air 05/04/17 07:15 Room Air 05/03/17 23:45 Room Air 05/03/17 23:23 36.7 82 16 108/70 (83) 96 Room Air 05/03/17 15:59 36.8 93 18 105/60 (75) 92 Nasal Cannula 2.0 05/03/17 15:55 Room Air 05/03/17 15:29 37.2 93 18 117/70 (86) 92 Room Air 05/03/17 13:40 36.9 82 14 122/74 (90) 96 Room Air Physical Exam General Appearance: no apparent distress Respiratory/Chest: no respiratory distress, no accessory muscle use Abdomen: normal bowel sounds, soft, + tenderness Extremities: normal inspection, no pedal edema Laboratory Results Last 24 Hours Test 05/04/17 06:28 White Blood Count 6.06 K/uL Red Blood Count 3.86 M/uL Hemoglobin 11.8 g/dL Hematocrit 33.5 % Mean Corpuscular Volume 86.8 fL Mean Corpuscular Hemoglobin 30.6 pg Mean Corpuscular Hemoglobin Concent 35.2 g/dl RDW Standard Deviation 38.9 fL RDW Coefficient of Variation 12.2 % Platelet Count 183 K/uL Mean Platelet Volume 10.5 fL Sodium Level 142 mmol/L Potassium Level 3.7 mmol/L Chloride Level 110 mmol/L Carbon Dioxide Level 27 mmol/L Anion Gap 5.0 mmol/L Blood Urea Nitrogen 6 mg/dl Creatinine 0.61 mg/dl Est Creatinine Clear Calc Drug Dose 192.6 ml/min Estimated GFR () > 150.0 Estimated GFR (Non- 133.1 BUN/Creatinine Ratio 9.3 Random Glucose 95 mg/dl Calcium Level 8.6 mg/dl Assessment and Plan This is a 31 year old male with no significant PMH, presented on 05/01 to the ER and found to have acute diverticulitis - was sent home and returned due to the pain Acute Sigmoid Diverticulitis 05/04 patient eager and anxious to go home due to pain, it would be beneficial for him to stay 1-2 more days for IV antibiotics, but he is refusing High risk for re-admission; explained risk of perforation, abscess, etc., but he would still like to be discharged Afebrile, no leukocytosis - will d/c on Cipro + Flagyl for 7 days, and Roxicodone PRN Explained a full liquid diet and low fiber diet in the acute phase high fiber diet and hydration for prevention colonoscopy in 6 weeks 05/03 currently on IV Cipro and Flagyl no fevers/chills, no leukocytosis +abdominal pain persists currently on clears, which we should keep very eager to go home - told patient that it would benefit him to stay to receive more doses of IV antibiotics, but he is refusing Will speak to him later in the afternoon today (05/03) - to discuss staying DVT ppx ambulation FULL CODE
[2017-05-04] MEDS: NSS + 20MEQ KCL 1000ML 1,000 ML IV SCH (08:30)
--- NOTE | 2017-05-04 08:30 | Discharge Summary ---
Discharge Summary Date of Service May 04, 2017. Discharge Summary Admission Date: May 03, 2017 at 00:25 Discharge Date: May 04, 2017 Discharge Disposition: Home Principal Diagnosis: Acute Sigmoid Diverticulitis Medication Reconciliation New Medications: Ciprofloxacin Hcl (Cipro) 500 Mg Tab 500 MG PO BID for 7 Days, #14 TAB Metronidazole (Flagyl) 500 Mg Tab 500 MG PO Q6H for 7 Days, #28 TAB Changed Medications: Oxycodone Ir (Roxicodone Ir) 5 Mg Tab 1 TAB PO Q4H PRN for Pain for 2 Days, #8 TAB (Changed from: 1-2 TAB; 15) For Initial Treatment Continued Medications: Ondasetron Odt (Zofran Odt) 4 Mg Tab 4 MG SL Q6H for Nausea, #20 TAB Discontinued Medications: Amoxicillin & Pot Clavulanate (Augmentin 875-125 mg) 1 Tab Tab 1 TAB PO BID for 10 Days, #20 TAB Admission Information Physical Exam (per Admitting): DATE OF ADMISSION: 05/03/2017 PRIMARY CARE PHYSICIAN: Dr. Broussard (although he has not met him) CHIEF COMPLAINT: Worsening abdominal pain. HISTORY OF PRESENT ILLNESS: History obtained from the patient and records. Medical history significant for diverticulitis. Yesterday patient noted to have lower abdominal pain with nausea, constipation, Seen at the Emergency Room. CAT scan showed acute diverticulitis. The patient refused admission because he had to go back to work. Patient discharged on Augmentin Worsening pain despite compliance. Patient returned to the emergency room. Given Zosyn in the ER. MEDICAL HISTORY: As above. No previous endoscopies. HOME MEDICATIONS: Include Augmentin, oxycodone, Zofran. FAMILY HISTORY: Diverticulitis. No colon cancer as per the patient. PERSONAL AND SOCIAL HISTORY: Nonsmoker, no chronic intake of alcoholic beverages. automotive center manager. REVIEW OF SYSTEMS: As per HPI, all other ROS negative. PHYSICAL EXAMINATION: VITAL SIGNS: Blood pressure was noted to be 130/90, pulse rate 105, RR 18, temperature 37, sats 95 on room air. GENERAL: Notes to be slightly uncomfortable, pleasant, no respiratory distress. SKIN: Normal color. HEENT: [place] palpebral conjunctivae. Dry mucosa. NECK: No JVD. Supple. CHEST: Clear to auscultation. HEART: Tachycardic. ABDOMEN: Hypogastric tenderness. EXTREMITIES: No edema. No tenderness NEUROLOGIC: No gross focality. LABORATORY DATA: Hemoglobin was noted to be 13.3, hematocrit 38.1, white cell count 11.4, platelets 203. Sodium 136, potassium 3.4, chloride 105, CO2 of 28, BUN 13, creatinine 0.8, glucose 119. CT abdomen and pelvis initial read showed acute diverticulitis. Some worsening. ASSESSMENT: 1. Acute diverticulitis, failed outpatient treatment. 2. Hypokalemia secondary to illness. 3. Constipation. PLAN: GMF Clear liquids for now. Bowel rest. Cipro, Flagyl. Outpatient GI consult for colonoscopy. Replace potassium. Laxatives. DVT prophylaxis, SCDs. Full code. Hospital Course This is a 31 year old male with no significant PMH, presented on 05/01 to the ER and found to have acute diverticulitis - was sent home and returned due to the pain Acute Sigmoid Diverticulitis 05/04 patient eager and anxious to go home due to pain, it would be beneficial for him to stay 1-2 more days for IV antibiotics, but he is refusing High risk for re-admission; explained risk of perforation, abscess, etc., but he would still like to be discharged Afebrile, no leukocytosis - will d/c on Cipro + Flagyl for 7 days, and Roxicodone PRN Explained a full liquid diet and low fiber diet in the acute phase high fiber diet and hydration for prevention colonoscopy in 6 weeks 05/03 currently on IV Cipro and Flagyl no fevers/chills, no leukocytosis +abdominal pain persists currently on clears, which we should keep very eager to go home - told patient that it would benefit him to stay to receive more doses of IV antibiotics, but he is refusing Will speak to him later in the afternoon today (05/03) - to discuss staying DVT ppx ambulation FULL CODE Total time spent on discharge = 35 minutes This includes examination of the patient, discharge planning, medication reconciliation, and communication with other providers. Discharge Instructions Please follow-up with Dr. Jenkins at [facility] on May 08 at 10:45AM Please take Cipro and Flagyl (antibiotics) for 7 days as prescribed - complete this course Please do not drive if taking Roxicodone IR Start with a full liquid diet and then continue a low fiber diet for 2 weeks You will need a colonoscopy in 6 weeks by GI Additional Copies To Arin Broussard M.D. (MEDICAL) Celia Jenkins D.O.
[2017-05-04 08:33] VITALS: BP 142/90; PULSE 51; TEMP 36.8; O2SAT 98
== END 2017-05-04 09:20 | disposition home or self-care (01) | DRG 392 ==
LOC: C.EDB 17:22 → C.MSW 05-03 00:25 → ENRESERV 05-03 01:20
PROVIDERS: ADMIT Internal Medicine; ATTEND Family Medicine
DX: K57.32 Diverticulitis of large intestine without perforation or abscess without bleeding (principal); F17.200 Nicotine dependence, unspecified, uncomplicated; D64.9 Anemia, unspecified; E87.6 Hypokalemia; K59.00 Constipation, unspecified

== ENCOUNTER 2017-06-15 13:48 | Emergency (ER) | payer BC ==
[~2017-06-15] VITALS: Ht 182.9 cm; Wt 87.4 kg
[~2017-06-15 13:48] MED LIST changes: -AMOX875T PO; +CIPR-255 PO
[2017-06-15 13:52] VITALS: TEMP 36.9; Ht 182.9 cm; Wt 87.4 kg
[2017-06-15] MEDS ORDERED: ACETAMINOPHEN IV 100 ML IV STA (14:29)
--- NOTE | 2017-06-15 14:59 | EMERGENCY ROOM VISIT NOTE ---
History First contact with patient: 14:18 Chief Complaint: EYE ASSESSMENT Stated Complaint: L EYE IS SWOLLEN,GOING TO EXPLODE History of Present Illness The patient is a 31 year old male who presents to the Emergency Room with complaints of left eye pain and swelling that came on abruptly this morning and has gotten progressively worse. Patient states he has been having symptoms of a sinus infection with sinus pain and congestion, runny nose, green nasal discharge for the past 2-3 days. He woke up this morning around 3:30 AM with pressure behind his left eye, states he took some Sudafed and that got better so he went back to sleep. When he got up later the pressure began to build and around 10am he started to have swelling of his upper and lower lid that has now swollen his eye shut. He reports severe pain with movement of the eye, blurring of his vision, and states "it feels like my eye is going to explode out of my head." He states the pain is constant, behind his eye, worse with opening and closing his eye or moving the eye, 9/10. He has been taking Sudafed for his sinus congestion, he denies taking any medications for pain. He denies getting anything into the eye, he denies wearing contacts. He denies any fevers or chills, headaches, neck pain or stiffness, rash. Review of Systems A complete 10 point review of systems was reviewed with the patient with pertinent positives and negatives as per history of present illness. All else were negative. Past Medical/Surgical History Medical Problems: (1) Diverticulitis (2) Finger laceration (3) Vasovagal syncope (4) Vasovagal syncope Family History Patient reports no known family medical history. Social History Smoking Status: Never Smoker Alcohol Use: occasionally Drug Use: none Housing Status: lives with significant other Occupation Status: employed Current/Historical Medications No Active Prescriptions or Reported Meds Physical Exam Vital Signs Date Time Temp Pulse Resp B/P (MAP) Pulse Ox O2 Delivery O2 Flow Rate FiO2 06/15/17 20:24 76 18 124/72 96 Room Air 06/15/17 19:03 84 18 131/77 96 Room Air 06/15/17 18:07 105 22 137/84 99 Room Air 06/15/17 17:53 98 18 100 Room Air 06/15/17 16:07 06/15/17 15:53 94 18 148/98 98 Room Air 06/15/17 13:52 36.9 112 18 160/87 97 Room Air Right Eye Acuity: 20/20 states very blurry Left Eye Acuity: can not see anything at all Physical Exam CONSTITUTIONAL: No acute distress. Well appearing and well nourished. Alert and oriented X 4 with normal affect. HEAD: Normocephalic, atraumatic. EYES: Pupils equal, round and reactive to light. The right eye appears normal. The left eyelids are swollen shut, with mild erythema and edema of the lids. The sclera is injected but not erythematous, moderate chemosis noted especially along the lateral aspect of the eye. There is watery discharge from the eye. Extraocular movement of the left eye is severely limited and extremely painful. The left orbit is firm to palpation compared to the right. Extraocular movement of the right eye is intact. Visual acuity was unable to be assessed due to swelling of the eye, however when patient is assisted in holding his lids open, he is able to read normal large print with only complaint of mild blurriness. EARS: TMs normal bilaterally, patent canals. NOSE: Bilateral naris patent, no drainage noted, mild mucosal edema. THROAT: Pharynx normal with no erythema, swelling, exudate. Uvula midline. No trismus. NECK: Supple, full active range of motion without discomfort. No cervical adenopathy. RESPIRATORY: Clear to auscultation bilaterally with no wheezing, crackles, rhonchi or stridor. Equal expansion bilaterally. CARDIOVASCULAR: Regular rate and rhythm with no murmurs, rubs or gallops. Normal peripheral perfusion. No edema. GASTROINTESTINAL: Soft, nontender, nondistended. Bowel sounds present in all quadrants. MUSCULOSKELETAL: Full range of motion of all joints without discomfort. INTEGUMENTARY: No rash or other significant dermatologic conditions noted. NEUROLOGIC: Cranial nerves II-XII grossly intact. No focal neurologic deficits noted. Normal strength, normal sensation, normal gait, normal coordination, normal speech. Medical Decision & Procedures ER Provider Diagnostic Interpretation: SINUSES MAXILLOFACIAL CT WITH INTRAVENOUS CONTRAST HISTORY: Left orbit swelling. evaluate orbital cellulitis TECHNIQUE: Multiaxial CT images of the sinuses were performed following the use of intravenous contrast. COMPARISON STUDY: Maxillofacial CT 03/27/2017. FINDINGS: The frontal sinuses are clear. There is near complete opacification of the ethmoid air cells, sphenoid sinuses, and maxillary sinuses. There are multiple fluid levels throughout the paranasal sinuses. The maxillary sinuses demonstrate significant polypoid mucosal thickening. Best seen on coronal image 33 there is a 4 mm defect within the left orbital floor. Small focus of gas and inflammatory change extending through this defect from the adjacent left maxillary sinus. This results in extraconal gas and a small amount of inflammatory change/fluid along the inferior aspect of the left orbit. There is also mild left infraorbital soft tissue swelling and gas. Mild fat stranding surrounding the infraorbital muscle. The retrobulbar fat is intact. There is stretching of the left optic nerve in comparison to the right. The globes are intact. There is left-sided exophthalmos. The visualized brain parenchyma is unremarkable. Healing mandibular fractures. IMPRESSION: 1. Severe paranasal acute sinusitis with multiple fluid levels most pronounced within the maxillary sinuses. There is an associated 4 mm defect within the left orbital floor with gas and inflammatory change/fluid extending through the orbital floor defect into the inferior extraconal space of the left orbit. There is also extension of this inflammatory change/gas into the left infraorbital subcutaneous soft tissues. This results in left-sided exophthalmus. This spread of infection may represent a developing abscess. ENT/ophthalmology consultation is recommended. Of note, there is stretching of the left optic nerve in comparison to the right. Decompression is advised to exclude the possibility of future optic nerve injury/blindness. 2. Healing mandibular fractures. 3. Findings were discussed the patient's wireless watcher, Deneen Olvera at 4:04 PM on 06/15/2017. Laboratory Results 06/15/17 15:24 Red Blood Count 5.18, Mean Corpuscular Volume 87.5, Mean Corpuscular Hemoglobin 29.9, Mean Corpuscular Hemoglobin Concent 34.2, Mean Platelet Volume 10.1, Neutrophils (%) (Auto) 80.5, Lymphocytes (%) (Auto) 12.9, Monocytes (%) (Auto) 5.6, Eosinophils (%) (Auto) 0.6, Basophils (%) (Auto) 0.1, Neutrophils # (Auto) 11.83, Lymphocytes # (Auto) 1.89, Monocytes # (Auto) 0.82, Eosinophils # (Auto) 0.09, Basophils # (Auto) 0.02 06/15/17 15:24 Test 06/15/17 15:24 White Blood Count 14.70 K/uL (4.8-10.8) Red Blood Count 5.18 M/uL (4.7-6.1) Hemoglobin 15.5 g/dL (14.0-18.0) Hematocrit 45.3 % (42-52) Mean Corpuscular Volume 87.5 fL (80-100) Mean Corpuscular Hemoglobin 29.9 pg (25-34) Mean Corpuscular Hemoglobin Concent 34.2 g/dl (32-36) Platelet Count 298 K/uL (130-400) Mean Platelet Volume 10.1 fL (7.4-10.4) Neutrophils (%) (Auto) 80.5 % Lymphocytes (%) (Auto) 12.9 % Monocytes (%) (Auto) 5.6 % Eosinophils (%) (Auto) 0.6 % Basophils (%) (Auto) 0.1 % Neutrophils # (Auto) 11.83 K/uL (1.4-6.5) Lymphocytes # (Auto) 1.89 K/uL (1.2-3.4) Monocytes # (Auto) 0.82 K/uL (0.11-0.59) Eosinophils # (Auto) 0.09 K/uL (0-0.5) Basophils # (Auto) 0.02 K/uL (0-0.2) Bedside Hemoglobin 16.0 g/dl (14.0-18.0) Bedside Hematocrit 47 % (42-52) RDW Standard Deviation 40.2 fL (36.4-46.3) RDW Coefficient of Variation 12.5 % (11.5-14.5) Immature Granulocyte % (Auto) 0.3 % Immature Granulocyte # (Auto) 0.05 K/uL (0.00-0.02) Erythrocyte Sedimentation Rate 8 mm/hr (0-14) Bedside Sodium 141 mEq/L (135-144) Bedside Potassium 3.8 mEq/L (3.3-5.0) Bedside Chloride 100 mEq/L (101-112) Bedside Total CO2 29 mEq/l (24-31) Anion Gap 16.0 mmol/L (16-25) Bedside Blood Urea Nitrogen 14 mg/dl (7-18) Bedside Creatinine 0.8 mg/dl (0.6-1.3) Est Creatinine Clear Calc Drug Dose 143.3 ml/min Estimated GFR () 136.6 Estimated GFR (Non- 117.8 BUN/Creatinine Ratio 17.4 (10-20) Bedside Glucose (other) 94 mg/dl (70-99) Calcium Level 9.5 mg/dl (8.5-10.1) Bedside Ionized Calcium (Kevon) 1.17 mmol/l (1.12-1.32) C-Reactive Protein 1.45 mg/dl (0-0.29) Medications Administered Medications (Trade) Dose Ordered Sig/Genet Route Start Time Stop Time Status Last Admin Dose Admin Acetaminophen 100 ml @ 400 mls/hr NOW STAT IV 06/15/17 14:29 06/15/17 14:43 DC 06/15/17 15:34 400 MLS/HR Sodium Chloride 1,000 ml @ 999 mls/hr Q1H1M STAT IV 06/15/17 15:03 06/15/17 16:03 DC 06/15/17 15:34 999 MLS/HR Ceftriaxone Sodium 2000 mg/ Dextrose 70 ml @ 100 mls/hr ONE STAT IV 06/15/17 15:41 06/15/17 16:22 DC 06/15/17 15:58 100 MLS/HR Morphine Sulfate (MoRPHine SULFATE INJ) 4 mg NOW STAT IV 06/15/17 15:59 06/15/17 16:00 DC 06/15/17 16:06 4 MG Ondansetron HCl (Zofran Inj) 4 mg NOW STAT IV 06/15/17 15:59 06/15/17 16:00 DC 06/15/17 16:06 4 MG Vancomycin HCl 2500 mg/Sodium Chloride 550 ml @ 200 mls/hr ONE STAT IV 06/15/17 16:06 06/15/17 18:59 DC 06/15/17 16:40 200 MLS/HR Metronidazole (Flagyl / Nss) 500 mg NOW STAT IV 06/15/17 16:25 06/15/17 16:26 DC 06/15/17 16:40 500 MG Morphine Sulfate (MoRPHine SULFATE INJ) 4 mg NOW STAT IV 06/15/17 17:14 06/15/17 17:16 DC 06/15/17 17:28 4 MG Hydromorphone HCl (Dilaudid Inj) 1 mg STK-MED ONCE .ROUTE 06/15/17 18:01 06/15/17 18:02 DC 06/15/17 18:01 0.5 MG Dexamethasone Sodium Phosphate (Decadron Inj) 10 mg NOW ONCE IV 06/15/17 19:00 06/15/17 19:01 DC 06/15/17 19:00 10 MG Ondansetron HCl (Zofran Inj) 4 mg NOW STAT IV 06/15/17 18:53 06/15/17 18:59 DC 06/15/17 18:57 4 MG Sodium Chloride 1,000 ml @ 999 mls/hr Q1H1M STAT IV 06/15/17 18:53 06/15/17 19:53 DC 06/15/17 19:00 999 MLS/HR Sodium Chloride 1,000 ml @ 125 mls/hr Q8H STAT IV 06/15/17 18:53 06/16/17 02:52 06/15/17 19:00 125 MLS/HR Ondansetron HCl (Zofran Inj) 4 mg Q6 PRN IV 06/15/17 20:45 07/15/17 20:44 06/15/17 20:41 4 MG Medical Decision CC: Patient presenting with complaint of left eye pain and swelling Interpretation of Labs: Leukocytosis with shift, no anemia, no significant electrolyte abnormalities, normal renal function. Normal ESR, elevated CRP. Differential Diagnosis: Includes, but not limited to conjunctivitis, preseptal cellulitis, orbital cellulitis, sinusitis, retro-orbital abscess, acute angle closure glaucoma, orbital compartment syndrome, among others. Medication Reconciliation: I attest that I have personally reviewed the patient' s current medication list. Vital signs review: I reviewed the patient's vital signs and interpret them as follows: T: Afebrile; BP: Hypertensive; HR: Tachycardic; RR: Within normal limits; Pulse Ox: Within normal limits on room air. Summary: Patient was evaluated at bedside, history of physical exam performed. Patient is alert and in no acute distress, but does appear uncomfortable, sitting in a chair in the room. His left eye is completely swollen shut, with notable erythema, swelling and mild proptosis. The left globe is firm to touch compared to the right. The pupil is briskly reactive to light and accommodation. Vision is grossly intact , though slightly blurry. Patient has very limited extraocular movement, and any attempts at this causes excruciating pain. Orders were placed at bedside for labs including ESR and CRP, IV fluids, CT face /sinuses with IV contrast to evaluate for facial infection and orbital cellulitis. Patient discussed with Dr. Johnson, who agrees with my assessment and plan. Labs reviewed as above, concerning for leukocytosis with an elevated CRP. CT imaging was reviewed and I discussed on the phone with Dr. Vergara, Radiologist, regarding findings that are concerning for severe sinus infection that extends retro-orbitally, possible developing retro-orbital abscess with resulting significant exophthalmus. I discussed imaging results with Dr. Johnson and with Kg Grant, who agree with treatment plan for IV vancomycin, ceftriaxone, and Flagyl for broad coverage. The patient was also given IV Decadron and NSS IV bolus. Patient reassessed multiple times throughout ED stay, he has had progressive worsening of his left eye, increasing proptosis and periorbital swelling, diminishing vision where he was previously able to read large print, and now is only able to make out shapes and colors. Multiple attempts to measure the IOP were unsuccessful, registering too high to read. I discussed with Dr. Johnson that I am concerned for developing orbital compartment syndrome and need for acute intervention with a lateral canthotomy. I spoke on the phone with Dr. Osuna, ophthalmology, who stated that the patient was too complex for him to manage and recommended transfer. I then spoke on the phone with [facility], who stated that they did not have the appropriate specialist on-call to manage the patient's condition. They did agree with my assessment that the patient needs an urgent lateral canthotomy. I discussed again with Dr. Johnson. He performed the lateral canthotomy at bedside, please see his note for further details. I then spoke on the phone with [facility], who also state that they do not have the appropriate specialist on-call to manage the patient' s condition. [facility] [place], who agrees that the patient can be transferred to them, however given the critical nature of his condition, recommended sending him directly to [facility] for admission and they will follow him there. I then spoke with Dr. Hyde, ENT Fellow, who agrees with transfer of the patient and they will accept him as a direct admission. Accepting attending physician is Dr. Jennifer David with ENT. The patient and his were updated multiple times throughout the emergency department stay, and were updated on plan for transfer to [facility] by [facility]. Patient stable at time of transfer by [facility]. Head Trauma GCS Score: 15 Medication Reconcilliation Current Medication List: was personally reviewed by me Blood Pressure Screening Blood pressure disposition: Elevated BP felt to be situational Impression Primary Impression: Acute sinusitis, unspecified Additional Impressions: Acute orbital inflammation Compression of optic nerve of left eye Critical Care I have personally spent greater than 45 minutes of critical care time in the direct management of this patient. This includes bedside care, interpretation of diagnostic studies, and testing, discussion with consultants, patient, and family members, and other required patient management activities. This 45 minutes is in excess of all separately billable procedures. Departure Information Dispostion Transfer Acute Care Facility Condition FAIR Prescriptions No Active Prescriptions or Reported Meds Referrals Arin Broussard M.D. (MEDICAL) (PCP) Patient Instructions My [facility] Problem Qualifiers Primary Impression: Acute sinusitis, unspecified Sinusitis location: unspecified location Recurrence: not specified as recurrent Qualified Codes: J01.90 - Acute sinusitis, unspecified
[2017-06-15] MEDS ORDERED: OPTIRAY 320 IV PRN (15:00)
[2017-06-15] MEDS ORDERED: SODIUM CHLORIDE 0.9% 1000ML 1,000 ML IV STA ×3 (15:03→18:53)
[2017-06-15 15:34] LABS: BASO % 0.1 %; BASO ABS # 0.02 K/uL (0-0.2); COMPLETE YES; EOS % 0.6 %; HEMATOCRIT 45.3 % (42-52); IG% 0.3 %; LYMPH % 12.9 %; LYMPH ABS # 1.89 K/uL (1.2-3.4); MEAN CELL VOLUME 87.5 fL (80-100); MEAN CORPUSCULAR HEMOGLOBIN 29.9 pg (25-34); MEAN CORPUSCULAR HGB CONC 34.2 g/dl (32-36); MEAN PLATELET VOLUME 10.1 fL (7.4-10.4); MONO % 5.6 %; NEUT % 80.5 %; PLATELET COUNT 298 K/uL (130-400); RED BLOOD COUNT 5.18 M/uL (4.7-6.1)
[2017-06-15] MEDS ORDERED: CEFTRIAXONE SOD INJ 2,000 MG in DEXTROSE 5% 50ML 50 ML IV STA (15:41)
[2017-06-15 15:42] LABS: ISTAT CREATININE 0.8 mg/dl (0.6-1.3); ISTAT IONIZED CALCIUM 1.17 mmol/l (1.12-1.32)
[2017-06-15 15:54] LABS: CREATININE 0.82 mg/dl (0.60-1.40)
[2017-06-15 15:55] LABS: BUN/CREATININE RATIO 17.4 (10-20); C-REACTIVE PROTEIN 1.45 mg/dl (0-0.29); CALCIUM 9.5 mg/dl (8.5-10.1); POTASSIUM 3.8 mmol/L (3.5-5.1)
--- NOTE | 2017-06-15 15:57 | EMERGENCY ROOM VISIT NOTE ---
ED Visit Note First contact with patient: 14:18 The patient was seen and examined with MARILUZ Hernandez. I agree with the history, physical and findings. Please see the note for disposition and details. Patient was seen and evaluated at the bedside. Upon initial assessment patient was complaining of some pain around the left eye. Patient had no APD. Patient was PERRL. Gross visual acuity was intact. Significant chemosis. No prior trauma. EOM restricted laterally, superior, and inferiorly. Good medial movement. Patient had blood work that was drawn and patient was given pain medication and a CT with IV contrast completed of the sinuses. Patient did have concerning evidence of stretching of the optic nerve, ?development of infection, gas, sinusitis, and proptosis. Given the nature of these findings, ophtho was called and informed us they were unable to complete the procedure. Furthermore, [facility] and [facility] were also called w/o ability to accept transfer. Given time constraints and unknown when patient would be transferred, a lateral cantholylsis was completed. Patient had significant chemosis and periorbital swelling which made lateral canthotomy difficult. Patient had incision completed lateral to canthus s/p lidocaine injection. Incisions were made over this area; however, there was severe difficulty incising the lateral canthus given the severe chemosis and inability of patient to open his eye. There was a significant concern to cause an open globe; thus, w/ the help of a separate physician who used the blunt portion of the forceps, the lateral orbit was palpated w/ the blunt end of the forceps so the eye was protected at the same time w/ this instrument at which point a scalpel was placed deep to the tissue laterally w/ the instrument protecting the eye until the orbit was contacted and the incision was extended laterally approximately 1-2 cms w/ patient noted improvement in his symptoms after the lateral canthal tendon was cut. This was a difficult procedure. Further attempts were made to find a suitable hospital to transfer the patient at which point an accepting physician was found at [facility] in [place]. Helicopter transport was arranged and patient was flighted. I have personally spent greater than 37 minutes of critical care time in the direct management of this patient. This includes bedside care, interpretation of diagnostic studies, and testing, discussion with consultants, patient, and family members, and other required patient management activities. This 37 minutes is in excess of all separately billable procedures.
[2017-06-15] MEDS ORDERED: ONDANSETRON INJ 2 MG/ML 2 ML VIAL IV STA ×2 (15:59→18:53)
[2017-06-15] MEDS ORDERED: MoRPHine SULFATE 4 MG/ML 1 ML CARP\\VIAL IV STA ×2 (15:59→17:14)
--- NOTE | 2017-06-15 16:05 | DIAGNOSTIC IMAGING REPORT ---
SINUSES MAXILLOFACIAL CT WITH INTRAVENOUS CONTRAST HISTORY: Left orbit swelling. evaluate orbital cellulitis TECHNIQUE: Multiaxial CT images of the sinuses were performed following the use of intravenous contrast. COMPARISON STUDY: Maxillofacial CT 03/27/2017. FINDINGS: The frontal sinuses are clear. There is near complete opacification of the ethmoid air cells, sphenoid sinuses, and maxillary sinuses. There are multiple fluid levels throughout the paranasal sinuses. The maxillary sinuses demonstrate significant polypoid mucosal thickening. Best seen on coronal image 33 there is a 4 mm defect within the left orbital floor. Small focus of gas and inflammatory change extending through this defect from the adjacent left maxillary sinus. This results in extraconal gas and a small amount of inflammatory change/fluid along the inferior aspect of the left orbit. There is also mild left infraorbital soft tissue swelling and gas. Mild fat stranding surrounding the infraorbital muscle. The retrobulbar fat is intact. There is stretching of the left optic nerve in comparison to the right. The globes are intact. There is left-sided exophthalmos. The visualized brain parenchyma is unremarkable. Healing mandibular fractures. IMPRESSION: 1. Severe paranasal acute sinusitis with multiple fluid levels most pronounced within the maxillary sinuses. There is an associated 4 mm defect within the left orbital floor with gas and inflammatory change/fluid extending through the orbital floor defect into the inferior extraconal space of the left orbit. There is also extension of this inflammatory change/gas into the left infraorbital subcutaneous soft tissues. This results in left-sided exophthalmus. This spread of infection may represent a developing abscess. ENT/ophthalmology consultation is recommended. Of note, there is stretching of the left optic nerve in comparison to the right. Decompression is advised to exclude the possibility of future optic nerve injury/blindness. 2. Healing mandibular fractures. 3. Findings were discussed the patient's galley cook, Deneen Olvera at 4:04 PM on 06/15/2017. Electronically signed by: Kishan Vergara M.D. 06/15/2017 4:04 PM Dictated Date/Time: 06/15/2017 3:51 PM
[2017-06-15] MEDS ORDERED: VANCOMYCIN INJ 2,500 MG in SODIUM CHLORIDE 0.9% 500ML 500 ML IV STA (16:06)
[2017-06-15] MEDS ORDERED: METRONIDAZOLE 500MG / 100ML NSS IV STA (16:25)
[2017-06-15] MEDS ORDERED: XYLOCAINE 1%/SOD BICARB 20 ML VIAL INFIL ONE (17:15)
[2017-06-15] MEDS ORDERED: LIDOCAINE/EPINEPHRINE 1% 20 ML VIAL ONE (17:51)
[2017-06-15] MEDS ORDERED: HYDROmorphone INJ 1 MG/ML SYR ONE (18:01)
[2017-06-15] MEDS ORDERED: DEXAMETHASONE SOD INJ 10 MG/ML VIAL IV ONE (19:00)
[2017-06-15 20:24] VITALS: BP 124/72; PULSE 76; O2SAT 96
[2017-06-15] MEDS ORDERED: MoRPHine SULFATE 4 MG/ML 1 ML CARP\\VIAL IV PRN (20:45)
[2017-06-15] MEDS ORDERED: ONDANSETRON INJ 2 MG/ML 2 ML VIAL IV PRN (20:45)
[2017-06-15] MEDS ORDERED: METRONIDAZOLE / NSS 500 MG in PREMIXED NSS 100 ML IV ONE (21:00)
[2017-06-15] MEDS ORDERED: VANCOMYCIN INJ 2,000 MG in SODIUM CHLORIDE 0.9% 500ML 500 ML IV ONE (21:30)
[2017-06-15] MEDS ORDERED: VANCOMYCIN INJ 2,000 MG in SODIUM CHLORIDE 0.9% 250ML 250 ML IV ONE (21:30)
[2017-06-16] MEDS ORDERED: VANCOMYCIN INJ 2,000 MG in SODIUM CHLORIDE 0.9% 250ML 250 ML IV SCH ×2
[2017-06-16] MEDS ORDERED: METRONIDAZOLE / NSS 500 MG in PREMIXED NSS 100 ML IV SCH
== END 2017-06-15 21:37 | disposition short-term general hospital (02) ==
LOC: C.EDB 13:50 → C.EDD 21:37
DX: J01.90 Acute sinusitis, unspecified (principal); H47.092 Other disorders of optic nerve, not elsewhere classified, left eye; H05.00 Unspecified acute inflammation of orbit; K57.92 Diverticulitis of intestine, part unspecified, without perforation or abscess without bleeding; Z87.828 Personal history of other (healed) physical injury and trauma

== ENCOUNTER 2023-08-25 17:56 | Inpatient (IN) ==
--- OUTSIDE RECORDS SUMMARY | 2023-08-25 18:00 | External Medical Summary | Summary of Care ---
Author Name Unknown Organization [facility] Address [address] [place] [address] Phone [phone] Care Team Providers Care Diesel Power Mechanic Name Role Phone John Murillo MD Primary Care Provider [phone]- [phone] Reason for Visit * Reason Comments Acute Possible herina Encounter Details Date Type Department Care Team Description 06/11/2023 Office Visit [facility] [address] [place] [address] Lauren Bee MD [address] [place] [address] LLQ pain*; Swelling of abdominal wall Allergies No known active allergiesdocumented as of this encounter (statuses as of 06/11/2023) Medications Medication Sig Dispensed Refills Start Date End Date Status Mupirocin 2 % External Ointment (Bactroban) Apply topically to affected area 3 times a day . Apply to affected area three times daily for 10 days 22 g 0 06/05/2022 06/11/2023 Discontinued Sulfamethoxazole -Trimethoprim 800-160 MG Oral Tablet (Bactrim DS) Take 2 tabs by mouth twice per day for 7 days 28 Tablet 0 12/04/2022 06/11/2023 Discontinued documented as of this encounter (statuses as of 06/11/2023) Active Problems Problem Noted Date MRSA carrier 10/09/2022 Other specified disease of hair and hair follicles documented as of this encounter (statuses as of 06/11/2023) Resolved Problems Problem Noted Date Resolved Date Acute diverticulitis of intestine 05/08/2017 09/23/2018 Hematuria of undiagnosed cause 05/08/2017 0 09/29/2019 Diverticulosis 04/17/2017 09/23/2018 2ND DEG BURN ARM NOS 12/03/2004 05/08/2017 2ND DEG BURN HAND NOS 12/03/2004 05/08/2017 1ST DEG BURN ARM NOS 12/03/2004 05/08/2017 1ST DEG BURN HAND NOS 12/03/2004 05/08/2017 Varicella without complication 0 09/29/2019 documented as of this encounter (statuses as of 06/11/2023) Immunizations Name Administration Dates Next Due TDAP (age 10 and older)(Boostrix) 05/28/2019 documented as of this encounter Social History Tobacco Use Types Packs/Day Years Used Date Smoking Tobacco: Former Cigarettes 1 4 Q uit: 04/25/2016 Passive Smoke Exposure: Never Smokeless Tobacco: Never Tobacco Cessation:Counseling Given: Not Answered Alcohol Use Standard Drinks/Week Comments Yes 12 (1 standard drink = 0.6 oz pu re alcohol) 12 pack per week Food Insecurity Answer Date Recorded Within the past 12 months, y ou worried that your food would run out before you got money to buy more. Never true 06/07/2023 Within the past 12 months, t he food you bought just didn't last and you didn't have money to get more. Never true 06/07/2023 Sex Assigned at Date Recorded Male 05/28/2019 12:48 PM EDT Job Start Date Occupation Industry Not on file Not on file Not on file documented as of this encounter Last Filed Vital Signs Vital Sign Reading Time Taken Comments Blood Pressure 138/88 06/11/2023 8:53 AM EDT Pulse 83 06/11/2023 8:53 AM EDT Temperature 36.1 C (96.9 F) 06/11/2023 8:53 AM ED T Respiratory Rate 20 06/11/2023 8:53 AM EDT Oxygen Saturation 96% 06/11/2023 8:53 AM EDT Inhaled Oxygen Concentration - - Weight 90.4 kg (199 lb 4.8 oz) 06/11/2023 8:53 A M EDT Height - - Body Mass Index 27.22 10/09/2022 10:24 AM EST documented in this encounter Progress Notes * Lauren Bee MD - 06/11/2023 9:03 AM EDT Images from the original note were not included. Subjective Cameron Herrera is a 37 year old male. Chief Complaint Patient presents with Acute Possible herina HPI: Here for concern about possible hernia which happened after pull up bar use Last Sun LLQ abd area , some swelling with certain movement only Pain was sharp ,moderate Today feels better No skin color change + small lump on palpation PMH: Patient Active Problem List Diagnosis Code Other specified disease of hair and hair follicles L67.8, L73.8 MRSA carrier Z22.322 No current outpatient medications on file. No current facility-administered medications for this visit. Past Medical History: Diagnosis Date Diverticulosis 04/2017 Other specified disease of hair and hair follicles Varicella without complication Past Surgical History: Procedure Laterality Date COLONOSCOPY, DIAGNOSTIC (RECTUM) 07/17/2017 normal/COLONOSCOPY FLEXIBLE PROXIMAL DIAGNOSTIC performed by Jay Black MD at ENDOSCOPY [facility] DENTAL SURGERY PROCEDURE NEC age 17 x 1 Review of patient's allergies indicates: No Known Allergies Family History Problem Relation Age of Onset Gastro-intestinal disorder Father 55 diverticulitis Gastro-intestinal disorder Mother ulcerative colitis Arthritis Father Mental Disorder Sister depression No Past Hx Sister No Past Hx Brother No Past Hx Brother Family Status Relation Status Mo Alive Fa Alive Sis Alive Sis Alive Bro Alive Bro Alive Sis (Not Specified) Sis (Not Specified) Bro (Not Specified) Bro (Not Specified) Social History Socioeconomic History Marital status: Spouse name: Not on file Number of children: Not on file Years of education: Not on file Highest education level: Not on file Occupational History Not on file Tobacco Use Smoking status: Former Packs/day: 1.00 Years: 4.00 Pack years: 4.00 Types: Cigarettes Quit date: 04/25/2016 Years since quittin.1 Passive exposure: Never Smokeless tobacco: Never Vaping Use Vaping Use: Never used Substance and Sexual Activity Alcohol use: Yes Alcohol/week: 12.0 standard drinks Types: 12 12 oz of beer per week Comment: 12 pack per week Drug use: No Sexual activity: Yes Partners: Female Other Topics Concern Service No Blood Transfusions No Caffeine Concern Yes Occupational Exposure No Hobby Hazards No Sleep Concern No Stress Concern No Weight Concern No Special Diet No Back Care No Exercise No Bike Helmet No Seat Belt Yes Comment: sometimes Self-Exams Not Asked Social History Narrative 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 employer: [employer] education: Some college service: no hobbies/interests: son transfusions: no exercise: no diet: no samaritan/caodaism: methodist marital status: , together 10 years children: 2 gc: 0 ggc: 0 pets: 3 cats exposure to violence/threats/abuse: no things to improve: diet Social Determinants of Health Financial Resource Strain: Not on file Food Insecurity: No Food Insecurity Worried About Running Out of Food in the Last Year: Never true Ran Out of Food in the Last Year: Never true Transportation Needs: Not on file Physical Activity: Not on file Stress: Not on file Social Connections: Not on file Intimate Partner Violence: Not on file Housing Stability: Not on file Review of Systems Constitutional: Positive for activity change. Negative for appetite change, chills, diaphoresis, fatigue, fever and unexpected weight change. Gastrointestinal: Positive for abdominal pain. Negative for abdominal distention, nausea and vomiting. Psychiatric/Behavioral: Negative for agitation, behavioral problems and sleep disturbance. Objective BP 138/88 | Pulse 83 | Temp 36.1 C (96.9 F) (Infrared ) | Resp 20 | Wt 90.4 kg (199 lb 4.8 oz) | SpO2 96% | BMI 27.22 kg/m | BSA 2.14 m Physical Exam Constitutional: General: He is not in acute distress. Appearance: Normal appearance. He is not ill-appearing, toxic-appearing or diaphoretic. HENT: Head: Normocephalic and atraumatic. Nose: Nose normal. Eyes: Extraocular Movements: Extraocular movements intact. Conjunctiva/sclera: Conjunctivae normal. Pupils: Pupils are equal, round, and reactive to light. Abdominal: General: There is no distension. Palpations: Abdomen is soft. Tenderness: There is abdominal tenderness. There is no guarding or rebound. Hernia: Hernia: ?. Neurological: General: No focal deficit present. Mental Status: He is alert and oriented to person, place, and time. Psychiatric: Behavior: Behavior normal. ASSESSMENT/PLAN: LLQ pain (Primary) - US ABDOMEN LIMITED; Future; Expected date: 06/11/2023 Swelling of abdominal wall - US ABDOMEN LIMITED; Future; Expected date: 06/11/2023 US And be careful with movement Lauren Bee MD documented in this encounter Nursing Notes * Rosario Lake LPN - 06/11/2023 8:52 AM EDT Chief Complaint Patient presents with Acute Possible herina documented in this encounter Plan of Treatment Upcoming Encounters Date Type Specialty Care Team Description 06/18/2023 Imaging Radiology 08/14/2023 Office Visit Family Medicine John Murillo MD [facility] [place] [address] Scheduled Orders Name Type Priority Associated Diagnoses Orde r Schedule US ABDOMEN LIMITED Medical Imaging Routine LLQ pain Swelling of abdominal wall Expected: 06/11/2023, Expires: 07/11/2024 Scheduled Procedures Name Priority Associated Diagnoses Date/Ti me COLONOSCOPY FLEXIBLE PROXIMAL DIAGNOSTIC Recall Colon cancer screening Health Maintenance Due Date Last Done Comments COVID-19 Vaccine (#1) 04/12/1986 HIV Screening 2000 Hepatitis C Screening 2003 Depression Screening 11/26/2020 11/27/2019 Influenza Vaccine (FLU shot) (#1) 2023 Diabetes Screening 10/09/2025 10/09/2022, 1 , 11/27/2019, Additional history exists DTaP,Tdap,and Td Vaccines (7 - Td or Tdap) 05/28/2029 05/28/2019, 11/12/2000, 10/21/1990, Additional history exists Hepatitis B Completed 10/24/1996, 05/19, 05/08/1996 MENINGOCOCCAL (MENACTRA/MENVEO) Aged Out 04/13/2004 No longer eligible based on patient's age to complete this topic GARDASIL-HPV IMMUNIZATION SERIES Aged Out No longer eligible based on patient's age to complete this topic Pneumococcal Vaccine: Pediatrics (0 to 5 Years) and At-Risk Patients (6 to 64 Years) Aged Out No longer eligible based on patient's age to complete this topic documented as of this encounter Medical Devices Not on filedocumented as of this encounter Visit Diagnoses Diagnosis LLQ pain- Primary Abdominal pain, left lower quadrant Swelling of abdominal wall Abdominal or pelvic swelling, mass or lump, unspecified site documented in this encounter Care Teams Diesel Power Mechanic Relationship Specialty Start Date End Date John Murillo MD [address] [place] [address] PCP - General Family Medicine 08/28/19 documented as of this encounter"
--- OUTSIDE RECORDS SUMMARY | 2023-08-25 18:00 | External Medical Summary | Summary of Care ---
Author Name Unknown Organization [facility] Address [address] [place] [address] Phone [phone] Care Team Providers Care Warranty Manager Name Role Phone John Murillo MD Primary Care Provider [phone]- [phone] Reason for Visit * Reason Comments Other Patient states giorgi rn of infection of L side of nostril, spreading up into nasal passage, L side of cheek x's 5 days. Patient states concerns of MRSA Encounter Details Date Type Department Care Team Description 06/13/2023 Office Visit General Internal Medicine [facility] [place] [address] [place] [address] Eric Castro PA-C [address] [place] [address] Cellulitis of nose* Allergies No known active allergiesdocumented as of this encounter (statuses as of 06/13/2023) Medications Medication Sig Dispensed Refills Start Date End Date Status Pseudoephedrine HCl ER 120 MG Oral Tablet Extended Release 12 Hour Take 1 Tablet by mouth in the morning and 1 Tablet before bedtime. 0 Active Cephalexin 500 MG Oral CapsuleIndications: Cellulitis of nose Take 1 Capsule by mouth in the morning and 1 Capsule at noon and 1 Capsule in the evening and 1 Capsule before bedtime. Do all this for 10 days. 40 Capsule 0 06/13/2023 06/23/2023 Active Sulfamethoxazole-Tr imethoprim 800-160 MG Oral Tablet (Bactrim DS)Indications:Cell ulitis of nose Take 1 Tablet by mouth in the morning and 1 Tablet before bedtime. Do all this for 10 days. Until gone.. 20 Tablet 0 06/13/2023 06/23/2023 Active documented as of this encounter (statuses as of 06/13/2023) Active Problems Problem Noted Date MRSA carrier 10/09/2022 Other specified disease of hair and hair follicles documented as of this encounter (statuses as of 06/13/2023) Resolved Problems Problem Noted Date Resolved Date [...] as of this encounter (statuses as of 06/13/2023) Immunizations Name Administration Dates Next Due TDAP [...] Sign Reading Time Taken Comments Blood Pressure 136/84 06/13/2023 11:12 AM EDT Pulse 104 06/13/2023 11:12 AM EDT Temperature 36.9 C (98.5 F) 06/13/2023 1 1:12 AM EDT Respiratory Rate - - Oxygen Saturation 97% 06/13/2023 11: 12 AM EDT Inhaled Oxygen Concentration - - Weight 91.1 kg (200 lb 12.8 oz) 023 11:12 AM EDT Height 182.2 cm (5' 11.75") 06/13/2023 11:12 AM EDT Body Mass Index 27.42 06/13/2023 11:12 AM EDT documented in this encounter Progress Notes * Eric Castro PA-C - 06/13/2023 11:32 AM EDT Subjective: Cameron Herrera is a 37 year old male. Chief Complaint Patient presents with Other Patient states concern of infection of L side of nostril, spreading up into nasal passage, L side of cheek x's 5 days. Patient states concerns of MRSA HPI: 37 y/o male with 5 days of nose swelling on left that is worsening, tender, warm. Thought initially a pimple and tried popping. No fever, chills, sweats. Hx MRSA. PMH: Patient Active Problem List Diagnosis Code Other specified disease of hair and hair follicles L67.8, L73.8 MRSA carrier Z22.322 Current Outpatient Medications Medication Sig Dispense Refill Pseudoephedrine HCl ER 120 MG Oral Tablet Extended Release 12 Hour Take 1 Tablet by mouth in the morning and 1 Tablet before bedtime. Cephalexin 500 MG Oral Capsule Take 1 Capsule by mouth in the morning and 1 Capsule at noon and 1 Capsule in the evening and 1 Capsule before bedtime. Do all this for 10 days. 40 Capsule 0 Sulfamethoxazole-Trimethoprim 800-160 MG Oral Tablet (Bactrim DS) Take 1 Tablet by mouth in the morning and 1 Tablet before bedtime. Do all this for 10 days. Until gone.. 20 Tablet 0 No current facility-administered medications for this visit. Review of patient's allergies indicates: No Known Allergies All other review of systems reviewed and negative other than mentioned in HPI. Objective: BP 136/84 | Pulse 104 | Temp 36.9 C (98.5 F) | Ht 1.822 m (5' 11.75") | Wt 91.1 kg (200 lb 12.8oz) | SpO2 97% | BMI 27.42 kg/m | BSA 2.15 m Physical Exam HENT: Head: Comments: Edema, erythema, tenderness, and warmth in 1 cm area of left nostril ASSESSMENT: Cellulitis of nose (Primary) - Cephalexin 500 MG Oral Capsule; Take 1 Capsule by mouth in the morning and 1 Capsule at noon and 1 Capsule in the evening and 1 Capsule before bedtime. Do all this for 10 days. - Sulfamethoxazole-Trimethoprim 800-160 MG Oral Tablet (Bactrim DS); Take 1 Tablet by mouth in the morning and 1 Tablet before bedtime. Do all this for 10 days. Until gone.. Recommend above for coverage including MRSA. Watch for and fast progression despite above and need for ER for IV therapy. Should hopefully not resolving symptoms in 48-72 hours on therapy. Follow Up: Return if symptoms worsen or fail to improve. Eric Castro PA-C documented in this encounter Nursing Notes * Toshia Valdez LPN - 06/13/2023 11:12 AM EDT Chief Complaint Patient presents with Other Patient states concern of infection of L side of nostril, spreading up into nasal passage, L side of cheek x's 5 days. Patient states concerns of MRSA documented in this encounter Plan of Treatment Upcoming Encounters Date Type Specialty Care Team Description 06/18/2023 Imaging Radiology 08/14/2023 Office Visit Family Medicine John Murillo MD [address] [place] [address] Scheduled Procedures Name Priority Associated Diagnoses Date/Ti [...] as of this encounter Visit Diagnoses Diagnosis Cellulitis of nose- Primary Other diseases of nasal cavity and sinuses documented in this encounter Care Teams Warranty Manager Relationship Specialty Start Date End Date John Murillo MD [address] [place] [address] PCP - General Family Medicine 08/28/19 documented as of this encounter
--- OUTSIDE RECORDS SUMMARY | 2023-08-25 18:00 | External Medical Summary | Summary of Care ---
Author Name Unknown Organization [facility] Address [address] [place] [address] Phone [phone] Care Team Providers Care Fabricator Special Items Name Role Phone John Murillo MD Primary Care Provider +1- [phone] Reason for Visit * Reason Onset Date Comments Med Request 03/07/2023 Encounter Details Date Type Department Care Team Description 03/07/2023 Telephone [facility] [address] [place] [address] John Murillo MD [address] [place] [address] Med Request Allergies No known active allergiesdocumented as of this encounter (statuses as of 03/08/2023) Medications Medication Sig Dispensed Refills Start Date End Date Status Mupirocin 2 % External Ointment (Bactroban) Apply topically to affected area 3 times a day . Apply to affected area three times daily for 10 days 22 g 0 06/05/2022 Active Sulfamethoxazole-T rimethoprim 800-160 MG Oral Tablet (Bactrim DS) Take 2 tabs by mouth twice per day for 7 days 28 Tablet 0 12/04/2022 Active Doxycycline Hyclate 100 MG Oral CapsuleIndications :MRSA cellulitis Take 1 Capsule by mouth in the morning and 1 Capsule before bedtime. Do all this for 7 days. Until gone.. 14 Capsule 0 03/07/2023 03/14/2023 Active documented as of this encounter (statuses as of 03/08/2023) Active Problems Problem Noted Date MRSA carrier 10/09/2022 Other specified disease of hair and hair follicles documented as of this encounter (statuses as of 03/08/2023) Resolved Problems Problem Noted Date Resolved Date [...] as of this encounter (statuses as of 03/08/2023) Immunizations Name Administration Dates Next Due TDAP (age 10 and older)(Boostrix) 05/28/2019 documented as of this encounter Social History Tobacco Use Types Packs/Day Years Used Date Smoking Tobacco: Former Cigarettes 1 4 Q uit: 04/25/2016 Smokeless Tobacco: Never Alcohol Use Standard Drinks/Week Comments Yes 12 (1 standard drink = 0.6 oz pu re alcohol) 12 pack per week Sex Assigned at Date Recorded Male 05/28/2019 12:48 PM EDT Job Start Date Occupation Industry Not on file Not on file Not on file documented as of this encounter Miscellaneous Notes * Telephone Encounter - Alisia Cedeño LPN - 03/08/2023 2:18 PM EDT Called patient, verbalized understanding * Telephone Encounter - John Murillo MD - 03/07/2023 4:14 PM EDT Typically suggest bactrim or doxycycline for MRSA. If he wants to change from bactrim, would suggest doxycycline. Please warn him of increased risk for sunburn (cipro not typically used - maybe he meant clinda?) Doxy sent to pharmacy - start with 7 day course. Will call in 2 days to make sure that he has responded to therapy. * Telephone Encounter - Candace Mooney LPN - 03/07/2023 3:45 PM EDT Provider to address: outbreak Reason for Call: Med Request Contact: Telephone Call Contact Type: Assessment Outcome: Patient called. Has one on left buttock that is red and sore. 3 spots on leg that were huge pustules that burst. Had a gel from last time and put it on them with a bandage. Pressure is gone.The drainage was green. Started two days ago. diagnosed with an outbreak, guess this is why hehas it. Has had outbreaks about a total of 12 times and knows what it is. Said he has taken bactrimin the past, plus cipro. Asking for the cipro. He wants to not build an immunity to one antibiotic.Denies fever. Total Time including non face to face (minutes): 10 * Telephone Encounter - DAVID Farris - 03/07/2023 9:58 AM EDT Pt calling in stating he is getting a MRSA outbreak again, getting pustules. Requesting antibiotic for this. Dr Murillo has seen patient in the past for this. documented in this encounter Plan of Treatment Scheduled Procedures Name Priority Associated Diagnoses Date/Ti me COLONOSCOPY FLEXIBLE PROXIMAL DIAGNOSTIC Recall Colon cancer screening Health Maintenance Due Date Last Done Comments COVID-19 Vaccine (#1) 04/12/1986 HIV Screening 2000 Hepatitis C Screening 2003 Depression Screening, Annual for Pts 12 and Over 11/26/2020 11/27/2019 Influenza Vaccine (FLU shot) (Season Ended) 2023 Diabetes Screening 10/09/2025 10/09/2022, 1 , [...] as of this encounter Visit Diagnoses Diagnosis MRSA cellulitis- Primary Cellulitis and abscess of unspecified site documented in this encounter Care Teams Fabricator Special Items Relationship Specialty Start Date End Date John Murillo MD [address] [place] [address] PCP - General Family Medicine 08/28/19 documented as of this encounter
--- NOTE | 2023-08-25 18:53 | Emergency Department Note ---
History of Present Illness General Chief complaint: Infection Stated complaint: MRSA, PELVIC AREA, PAINFUL Time Seen by Provider: 08/25/23 18:15 History of Present Illness Maximum Pain Intensity: 8 NAME: HONORIO HINOJOSA AGE: 37 SEX: M : 1985 ARRIVES VIA: Walk-In INFORMANT: Patient ED PROVIDER(S): MARILUZ Reynolds, Pete Mcnair DO The patient is a 37-year-old male who arrives to the emergency department for evaluation of what he believes was an infected hair by his pubic symphysis he reports he pulled the hair on and by Sunday there was a red and painful area the size of a golf ball. He states he called his doctor who prescribed him Bactrim, which he states he normally takes 3 times a day for MRSA infection but was put on twice a day. The patient states by today the redness is larger. He denies fevers, but states he is becoming nauseated. Home Medications Medication Instructions Recorded Confirmed Type sulfamethoxazole 800 1 tab PO Q12H #20 tabs 08/11/22 08/25/23 Rx mg-trimethoprim 160 mg tablet (Bactrim DS) Allergies Allergy/AdvReac Type Severity Reaction Status Date / Time No Known Allergies Allergy Verified 12/07/19 19:31 Past Med/Surg History Medical History Diverticulitis Surgical History H/O eye surgery Social History Smoking Status: Never smoker Hx Alcohol Use: Yes Preferred Language: Irish Communication Ability: Effective Hearing Ability: Normal Finish Repairer Required: No marital status: Current Living Situation: Spouse current occupational status: employed Feels Safe at Home: Yes Physical Exam Vital Signs Vital Signs - 24 hr 08/25/23 18:03 08/25/23 18:53 08/25/23 18:53 Temperature 36.6 C Temperature Source Temporal Artery Scan Pulse Rate 121 H Pulse Rate [Finger] 96 H Respiratory Rate 20 18 Blood Pressure 138/90 Blood Pressure [Right Arm] Blood Pressure Mean 106 Blood Pressure Mean [Right Arm] Pulse Oximetry 96 94 94 Oxygen Delivery Method Room Air Room Air Sepsis Recent Fever Within 48 Hours No Sepsis New/Unexplained Change in Mental Status N/A Sepsis Action Taken by Nursing No Action Required 08/25/23 23:00 08/26/23 01:00 Temperature Temperature Source Pulse Rate Pulse Rate [Finger] 113 H 92 H Respiratory Rate 18 18 Blood Pressure Blood Pressure [Right Arm] 138/91 113/87 Blood Pressure Mean Blood Pressure Mean [Right Arm] 106 95 Pulse Oximetry 95 98 Oxygen Delivery Method Room Air Room Air Sepsis Recent Fever Within 48 Hours Sepsis New/Unexplained Change in Mental Status Sepsis Action Taken by Nursing General: Awake, alert and oriented. No acute distress. Well developed, hydrated and nourished. Appears stated age. Skin: Skin in warm, dry and intact. There is a cellulitic area extending from the left hip crossing the center of the pubic symphysis. The skin is erythematous, with edema and a central localization of purulent drainage. The area is indurated and TTP. Cardiac: The external chest is normal in appearance without lifts, heaves, or thrills. Heart rate and rhythm are normal. No murmurs, gallops, or rubs are auscultated. S1 and S2 are heard and are of normal intensity. Respiratory: The chest wall is symmetric and without deformity. No signs of trauma. Chest wall is non-tender. No signs of respiratory distress. Lung sounds are clear in all lobes bilaterally without rales, rhonchi, or wheezes. Abdominal: Abdomen is soft, symmetric, and non-tender without distention. There are no visible lesions or scars. The aorta is midline without bruit or visible pulsation. Umbilicus is midline without herniation. Bowel sounds are present and normoactive in all four quadrants. No masses, hepatomegaly, or splenomegaly are noted. Neurological: The patient is awake, alert and oriented to person, place, and time with normal speech. Motor function is normal with muscle strength 5/5 bilaterally to upper and lower extremities. Sensation is intact bilaterally. Reflexes 2+ bilaterally. Cranial nerves are intact. Cerebellar function is intact. Memory is normal and thought process is intact. Psychiatric: Appropriate mood and affect. Good judgement and insight. No visual or auditory hallucinations. No suicidal or homicidal ideation. Course Consultations Consultation #1: Dr. Rodgers from general surgery consulted, she recommends IV abx and admission for celllulitis. Time: 22:29 Administered Medications Discontinued Medications Sodium Chloride (Nss) 1,000 mls @ 999 mls/hr IV .Q1H1M TUNDE Stop: 08/25/23 20:00 Last Infusion: 08/25/23 20:24 Dose: Infused Documented By: Admin: 08/25/23 19:18 Dose: 999 mls/hr Documented By: DOUGLAS Ceftriaxone Sodium (Rocephin) 2,000 mg in 50 mls @ 100 mls/hr IV NOW STA Stop: 08/25/23 20:11 Last Infusion: 08/25/23 20:23 Dose: Infused Documented By: Admin: 08/25/23 19:52 Dose: 100 mls/hr Documented By: CAROLANN Vancomycin HCl 1,750 mg/ (Sodium Chloride) 535 mls @ 200 mls/hr IV NOW ONE Stop: 08/26/23 01:25 Last Infusion: 08/26/23 01:53 Dose: Infused Documented By: Admin: 08/25/23 23:08 Dose: 200 mls/hr Documented By: BAUTISTA Sodium Chloride (Nss) 1,000 mls @ 999 mls/hr IV .Q1H1M ONE Stop: 08/26/23 01:35 Last Admin: 08/26/23 01:34 Dose: 999 mls/hr Documented By: BAUTISTA Ioversol (Optiray 320 500ml) 85 ml IV ONCE ONE Stop: 08/25/23 20:16 Last Admin: 08/25/23 20:16 Dose: 85 ml Documented By: JIN Medical Decision Making Differential Diagnosis Etiologies such as cellulitis, abscess, MRSA infection, dermatitis, drug eruption, necrotizing fasciitis, DVT as well as others were entertained. Medical Records Attestation: I reviewed the patient's medical records. Home Medications Current Medication List: was personally reviewed by me Laboratory Data Attestation: I reviewed the patient's lab results. Leukocytosis 13.33, no electrolyte abnormalities, Lactate negative, procalcitonin negative. 08/25/23 19:02 08/25/23 18:53 Lab Results 08/25/23 08/25/23 Range/Units 18:53 19:02 WBC 13.33 H (4.8-10.8) K/ul RBC 4.65 L (4.70-6.10) M/uL Hgb 14.2 (14.0-18.0) g/dl Hct 39.9 L (42.0-52.0) % MCV 85.8 (80.0-100.0) fL MCH 30.5 (25.0-34.0) pg MCHC 35.6 (32.0-36.0) g/dL RDW Std Deviation 37.1 (36.4-46.3) fL RDW Coeff of Sean 11.9 (11.5-14.5) % Plt Count 247 (130-400) K/uL MPV 10.7 (9.4-12.4) fL Immature Gran % (Auto) 0.5 % Neut % (Auto) 80.7 % Lymph % (Auto) 10.9 % [place] % (Auto) 6.9 % Eos % (Auto) 0.5 % Baso % (Auto) 0.5 % Neut # (Auto) 10.75 H (1.40-6.50) K/uL Lymph # (Auto) 1.45 (1.20-3.40) K/uL [place] # (Auto) 0.92 H (0.11-0.59) K/uL Eos # (Auto) 0.07 (0.00-0.50) K/uL Baso # (Auto) 0.07 (0.00-0.20) K/uL Immature Gran # (Auto) 0.07 (0.01-0.20) K/uL Sodium 136 (136-145) mmol/L Potassium 3.5 (3.5-5.1) mmol/L Chloride 101 (98-107) mmol/L Carbon Dioxide 26 (21-32) mmol/L Anion Gap 9 (3-11) BUN 13 (6-23) mg/dl Creatinine 0.86 (0.6-1.4) mg/dl Est Cr Clr Drug Dosing 136.6 ml/min Est GFR ( Amer) 128.4 ml/min Est GFR (Non-Af Amer) 110.8 ml/min BUN/Creatinine Ratio 15.1 (10-20) Glucose 124 H (70-99(Fasting)) mg/dl Lactate 0.8 (0.4-2.0) mmol/L Calcium 9.1 (8.6-10.3) mg/dl Total Bilirubin 1.2 H (0.2-1.0) mg/dl AST 12 L (13-39) U/L ALT 13 (7-52) U/L Alkaline Phosphatase 89 (34-104) U/L Total Protein 7.2 (6.0-8.3) gm/dl Albumin 4.5 (3.4-5.0) gm/dl Globulin 2.7 (2.5-4.0) gm/dl Albumin/Globulin Ratio 1.7 (0.9-2) Procalcitonin < 0.05 (0-0.5) ng/ml Imaging Data Radiologist's Impression: Abdomen/Pelvis CT 08/25/23 18:54 Exam(s): CT ABDOMEN + PELVIS With Contrast IV Amt: 85ml opti 320 EXAM: CT Abdomen and Pelvis With Intravenous Contrast CLINICAL HISTORY: Reason for exam: infection in groin. TECHNIQUE: Axial computed tomography images of the abdomen and pelvis with intravenous contrast. CTDI is 41 mGy and DLP is 1481.09 mGy-cm. Automated exposure control was utilized for the study. A dose lowering technique was utilized adhering to the principles of ALARA. CONTRAST: Patient received 85ml opti 320 of IV contrast COMPARISON: CT abdomen/pelvis on 05/03/2017 FINDINGS: Lung bases: Lower lung atelectasis. ABDOMEN: Liver: Unremarkable. No mass. Gallbladder and bile ducts: Unremarkable. No calcified stones. No ductal dilation. Pancreas: Unremarkable. No mass. No ductal dilation. Spleen: Unremarkable. No splenomegaly. Adrenals: Unremarkable. No mass. Kidneys and ureters: Nonspecific mild bilateral perinephric fat stranding. Small hypodensity in the right kidney is too small to definitively characterize. No hydronephrosis or obstructing stone. Stomach and bowel: Diverticulosis. Diverticulitis involving the mid descending colon. Evaluation of the stomach is limited by underdistention. Prominence of the jacques of the descending colon and sigmoid colon are otherwise probably secondary to underdistention. PELVIS: Appendix: Normal appendix. Bladder: Unremarkable. No mass. Reproductive: Unremarkable as visualized. ABDOMEN and PELVIS: Intraperitoneal space: Unremarkable. No free air. No significant fluid collection. Bones/joints: Degenerative changes at L5-S1. No acute fracture. No dislocation. Soft tissues: Nonspecific fat stranding in the left inguinal region. Small fat-containing umbilical hernia. Vasculature: Unremarkable. No abdominal aortic aneurysm. Lymph nodes: Mildly prominent left inguinal lymph nodes. IMPRESSION: 1. Diverticulosis. Diverticulitis involving the mid descending colon. 2. Nonspecific fat stranding in the left inguinal region. 3. Mildly prominent left inguinal lymph nodes. Electronically signed by: Uche Land M.D. 08/25/23 21:16 PM Blood Pressure Blood Pressure Findings: Normal blood pressure MDM Narrative Patient is a 37-year-old male who arrives to the emergency department for the above-stated complaint. Upon assessment the patient has a large indurated region extending from his left hip that crosses the center of his pubic region. This area is erythematous with edema and induration, central localized area. Drainage which appears to be an abscess initial examination. An IV was placed, labs were obtained including CBC, CMP, calcitonin, lactate, and blood cultures based on patient's presentation and vital signs. Based on patient's history of MRSA, and with his current regimen of Bactrim, the Rocephin was started with the initial intent of discharging home on Keflex and continuation of Bactrim. CT imaging of the abdomen pelvis was ordered to identify the need for surgical intervention versus incision and drainage in the emergency department. CT imaging showed no localization of infection, however, there is fat stranding, and an incidental finding diverticulosis/diverticulitis. Dr. Rodgers from general surgery was consulted prior to the formal report, due to the length of time it was taking to receive the formal radiology report. Dr. Rodgers confirmed the patient does not have a fast-growing infection that will need immediate intervention. She stated she believes the infection is a cellulitis and not an abscess, therefore IV antibiotics and admission would be appropriate. IV vancomycin was ordered, and Dr. Thomas was contacted for admission. The patient was informed of the plan of care, which he agreed to. At that time Dr. Thomas took over the patient's care. Impression & Plan Cellulitis Discharge Plan Visit Data Chief Complaint: Infection Stated Complaint: MRSA, PELVIC AREA, PAINFUL ED Provider: Pete Mcnair ED Midlevel Provider: Claudia Hunter Discharge Problem: Cellulitis Patient Disposition: Admitted As Inpatient Discharge Instructions Interventions: ED Discharge Assessment Last Done: 08/26/23 02:46 Forms Stand Alone Forms: [employer] Prescriptions Prescriptions: No Action sulfamethoxazole-trimethoprim [Bactrim DS] 800-160 mg tablet 1 tab PO Q12H Qty: 20 0RF Referrals Referrals: John Murillo MD [Primary Care Provider] - Discharge Problem: Cellulitis Qualifiers: Site of cellulitis: trunk Site of cellulitis of trunk: groin Qualified Code(s): L03.314 - Cellulitis of groin
[2023-08-25] MEDS ORDERED: SODIUM CHLORIDE 0.9% 1,000 ML IV SCH (19:00)
[2023-08-25 19:30] LABS: Basophils # (auto) 0.07 K/uL (0.00-0.20); Basophils % (auto) 0.5 %; Eosinophils # (auto) 0.07 K/uL (0.00-0.50); Eosinophils % (auto) 0.5 %; Hematocrit (blood only) 39.9 % (42.0-52.0); Hemoglobin 14.2 g/dl (14.0-18.0); Immature Granulocytes # (auto) 0.07 K/uL (0.01-0.20); Immature Granulocytes % (auto) 0.5 %; Lymphocytes # (auto) 1.45 K/uL (1.20-3.40); Lymphocytes % (auto) 10.9 %; Mean Corpuscular Hemoglobin 30.5 pg (25.0-34.0); Mean Corpuscular Hgb Conc 35.6 g/dL (32.0-36.0); Mean Corpuscular Volume 85.8 fL (80.0-100.0); Mean Platelet Volume 10.7 fL (9.4-12.4); Monocytes # (auto) 0.92 K/uL (0.11-0.59); Monocytes % (auto) 6.9 %; Neutrophils # (auto) 10.75 K/uL (1.40-6.50); Neutrophils % (auto) 80.7 %; Platelet Count 247 K/uL (130-400); RDW Coefficient of Variation 11.9 % (11.5-14.5); RDW Standard Deviation 37.1 fL (36.4-46.3); Red Blood Count 4.65 M/uL (4.70-6.10); White Blood Count 13.33 K/ul (4.8-10.8)
[2023-08-25] MEDS ORDERED: cefTRIAXone SODIUM 2,000 MG/50 ML BAG IV STA (19:42)
[2023-08-25 20:03] LABS: Albumin Globulin Ratio 1.7 (0.9-2); Albumin Level 4.5 gm/dl (3.4-5.0); BUN Creatinine Ratio 15.1 (10-20); Bilirubin,Total 1.2 mg/dl (0.2-1.0); Calcium 9.1 mg/dl (8.6-10.3); Creatinine Clr Calc Pharmacy 136.6 ml/min; Est GFR (African American) 128.4 ml/min; Est GFR (Non-African American) 110.8 ml/min; Globulin 2.7 gm/dl (2.5-4.0); Potassium 3.5 mmol/L (3.5-5.1); Total Protein 7.2 gm/dl (6.0-8.3)
[2023-08-25] MEDS ORDERED: OPTIRAY 320 500ml IV ONE (20:15)
--- NOTE | 2023-08-25 21:17 | CT Scan Report ---
Exam(s): CT ABDOMEN + PELVIS With Contrast IV Amt: 85ml opti 320 EXAM: CT Abdomen and Pelvis With Intravenous Contrast CLINICAL HISTORY: Reason for exam: infection in groin. TECHNIQUE: Axial computed tomography images of the abdomen and pelvis with intravenous contrast. CTDI is 41 mGy and DLP is 1481.09 mGy-cm. Automated exposure control was utilized for the study. A dose lowering technique was utilized adhering to the principles of ALARA. CONTRAST: Patient received 85ml opti 320 of IV contrast COMPARISON: CT abdomen/pelvis on 05/03/2017 FINDINGS: Lung bases: Lower lung atelectasis. ABDOMEN: Liver: Unremarkable. No mass. Gallbladder and bile ducts: Unremarkable. No calcified stones. No ductal dilation. Pancreas: Unremarkable. No mass. No ductal dilation. Spleen: Unremarkable. No splenomegaly. Adrenals: Unremarkable. No mass. Kidneys and ureters: Nonspecific mild bilateral perinephric fat stranding. Small hypodensity in the right kidney is too small to definitively characterize. No hydronephrosis or obstructing stone. Stomach and bowel: Diverticulosis. Diverticulitis involving the mid descending colon. Evaluation of the stomach is limited by underdistention. Prominence of the jacques of the descending colon and sigmoid colon are otherwise probably secondary to underdistention. PELVIS: Appendix: Normal appendix. Bladder: Unremarkable. No mass. Reproductive: Unremarkable as visualized. ABDOMEN and PELVIS: Intraperitoneal space: Unremarkable. No free air. No significant fluid collection. Bones/joints: Degenerative changes at L5-S1. No acute fracture. No dislocation. Soft tissues: Nonspecific fat stranding in the left inguinal region. Small fat-containing umbilical hernia. Vasculature: Unremarkable. No abdominal aortic aneurysm. Lymph nodes: Mildly prominent left inguinal lymph nodes. IMPRESSION: 1. Diverticulosis. Diverticulitis involving the mid descending colon. 2. Nonspecific fat stranding in the left inguinal region. 3. Mildly prominent left inguinal lymph nodes. Electronically signed by: Uche Land M.D. 08/25/23 21:16 PM
[2023-08-25] MEDS ORDERED: VANCOMYCIN CONSULT ACTIVE PRN (22:45)
[2023-08-25] MEDS ORDERED: VANCOMYCIN HCL 1,750 MG in SODIUM CHLORIDE 0.9% 500 ML IV ONE (22:45)
[2023-08-26] MEDS ORDERED: SODIUM CHLORIDE 0.9% 1,000 ML IV ONE (00:35)
--- NOTE | 2023-08-26 02:07 | History & Physical Report ---
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 Patient noticed infection in his left groin on and called his PCP on Sunday and was prescribed Bactrim. But erythema in the groin was spreading and is getting worse and he also noticed pain in his left flank and left lower abdominal region and came to the ER. CT scan showing no obvious abscess but showing diverticulitis. Diverticulitis Involving mid descending colon N.p.o. IV fluids IV Dilaudid as needed IV Zosyn Consult surgery in a.m. Left groin cellulitis MRSA carrier Zosyn and Vanco Will follow the response DVT prophylaxis Lovenox Disposition Medical floor Full code History of Present Illness Chief Complaint: 37-year-old male with past med history significant for MRSA carrier presents with left groin cellulitis and diverticulitis. Patient noticed infection in his left groin on and called his PCP on Sunday and was prescribed Bactrim. But erythema in the groin was spreading and is getting worse and he also noticed pain in his left flank and left lower abdominal region and came to the ER. CT scan showing no obvious abscess but showing diverticulitis. Except for pain in the infection area , no other complaints. Says bowel movements are small. Normal blader movements. No chest pain or shortness of breath. No cough. Has some headache. No blurred visions. No earache no runny nose no sore throat. Hemodynamically stable. Past medical history. As mentioned above Past surgical history. Colonoscopy. Dental surgery. Social history. Quit smoking 2015. Smoked 1 pack a day for 4 years. Alcohol 12 standard drinks of alcohol per week. No drug use. Family history. Father has arthritis. Diverticulitis. Mother has ulcerative colitis. Sister had depression. Primary Care Provider: John Murillo MD Allergies Allergy/AdvReac Type Severity Reaction Status Date / Time No Known Allergies Allergy Verified 12/07/19 19:31 Home Medications Medication Instructions Recorded Confirmed Type sulfamethoxazole 800 1 tab PO Q12H #20 tabs 08/11/22 08/25/23 Rx mg-trimethoprim 160 mg tablet (Bactrim DS) Past Med/Surg History Medical History Diverticulitis Surgical History H/O eye surgery Social History Smoking Status: Former smoker Second Hand Exposure: No; Do You Dip or Chew Tobacco: No; Hx Alcohol Use: Yes Hx Substance Use: Yes Last Used Substance: Days (ago) Preferred Language: Maltese Communication Ability: Effective Hearing Ability: Normal Case Managers Required: No Beliefs That Will Affect Care: None marital status: Current Living Situation: Spouse current occupational status: employed Other Information That Helps Us Care for You: No Feels Safe at Home: Yes Safety Concerns: Feels Safe At This Time Assistive Devices: None Review of Systems Review of Systems: All systems reviewed & are unremarkable except as noted in HPI & below Physical Exam Physical Exam: General- Not in distress. Head- atraumatic Eyes- PERRL. ENT- oropharynx clear Neck- supple, no JVD Lungs- clear to auscultation no wheezing or crackles. Heart- regular rhythm; no murmur, no gallop. Abdomen- normal bowel sounds, soft, tenderness in right lower quadrant no distension. Extremities- no pretibial edema, no erythema seen. Neuro- alert, oriented x 3; PERRL, EOMI; no facial palsy; no dysarthria; moves extremities. Skin- erythema seen in left groin region Results & Data Results & Data Vital Signs (Past 12 Hours) Vital Signs Temp Pulse Pulse Resp BP BP Pulse Ox 08/26/23 01:00 92 H 18 113/87 98 08/25/23 23:00 113 H 18 138/91 95 08/25/23 18:53 94 08/25/23 18:53 96 H 18 94 08/25/23 18:03 36.6 C 121 H 20 138/90 96 O2 Del Method 08/26/23 01:00 Room Air 08/25/23 23:00 Room Air 08/25/23 18:53 Room Air 08/25/23 18:53 Room Air 08/25/23 18:03 Diagnostic Findings Laboratory Results WBC 13.33 K/ul (4.8-10.8) H 08/25/23 19:02 RBC 4.65 M/uL (4.70-6.10) L 08/25/23 19: Hgb 14.2 g/dl (14.0-18.0) 08/25/23 19: Hct 39.9 % (42.0-52.0) L 08/25/23 19: MCV 85.8 fL (80.0-100.0) 08/25/23 19: MCH 30.5 pg (25.0-34.0) 08/25/23 19: MCHC 35.6 g/dL (32.0-36.0) 08/25/23 19: RDW Std Deviation 37.1 fL (36.4-46.3) 08/25/23: RDW Coeff of Sean 11.9 % (11.5-14.5) 08/25/23 19: Plt Count 247 K/uL (130-400) 08/25/23 19: MPV 10.7 fL (9.4-12.4) 08/25/23 19: Immature Gran % (Auto) 0.5 % 08/25/23 19: Neut % (Auto) 80.7 % 08/25/23 19: Lymph % (Auto) 10.9 % 08/25/23 19: [place] % (Auto) 6.9 % 08/25/23 19:02 Eos % (Auto) 0.5 % 08/25/23 19: Baso % (Auto) 0.5 % 08/25/23 19: Neut # (Auto) 10.75 K/uL (1.40-6.50) H 08/25/23 19:02 Lymph # (Auto) 1.45 K/uL (1.20-3.40) 08/25/23 19:02 [place] # (Auto) 0.92 K/uL (0.11-0.59) H 08/25/23 19: Eos # (Auto) 0.07 K/uL (0.00-0.50) 08/25/23 19: Baso # (Auto) 0.07 K/uL (0.00-0.20) 08/25/23 19: Immature Gran # (Auto) 0.07 K/uL (0.01-0.20) 12/09/23 19:02 Sodium 136 mmol/L (136-145) 08/25/23 18:53 Potassium 3.5 mmol/L (3.5-5.1) 08/25/23 18:53 Chloride 101 mmol/L (98-107) 08/25/23 18:53 Carbon Dioxide 26 mmol/L (21-32) 08/25/23 18:53 Anion Gap 9 (3-11) 08/25/23 18:53 BUN 13 mg/dl (6-23) 08/25/23 18:53 Creatinine 0.86 mg/dl (0.6-1.4) 08/25/23 18:53 Est Cr Clr Drug Dosing 136.6 ml/min 08/25/23 18:53 Est GFR ( Amer) 128.4 ml/min 08/25/23 18:53 Est GFR (Non-Af Amer) 110.8 ml/min 08/25/23 18:53 BUN/Creatinine Ratio 15.1 (10-20) 08/25/23 18:53 Glucose 124 mg/dl (70-99(Fasting)) H 08/25/23 18:53 Lactate 0.8 mmol/L (0.4-2.0) 08/25/23 19:02 Calcium 9.1 mg/dl (8.6-10.3) 08/25/23 18:53 Total Bilirubin 1.2 mg/dl (0.2-1.0) H 08/25/23 18:53 AST 12 U/L (13-39) L 08/25/23 18:53 ALT 13 U/L (7-52) 08/25/23 18:53 Alkaline Phosphatase 89 U/L (34-104) 08/25/23 18:53 Total Protein 7.2 gm/dl (6.0-8.3) 08/25/23 18:53 Albumin 4.5 gm/dl (3.4-5.0) 08/25/23 18:53 Globulin 2.7 gm/dl (2.5-4.0) 08/25/23 18:53 Albumin/Globulin Ratio 1.7 (0.9-2) 08/25/23 18:53 Procalcitonin < 0.05 ng/ml (0-0.5) 08/25/23 19:02 Impressions Abdomen/Pelvis CT 08/25/23 18:54 Exam(s): CT ABDOMEN + PELVIS With Contrast IV Amt: 85ml opti 320 EXAM: CT Abdomen and Pelvis With Intravenous Contrast CLINICAL HISTORY: Reason for exam: infection in groin. TECHNIQUE: Axial computed tomography images of the abdomen and pelvis with intravenous contrast. CTDI is 41 mGy and DLP is 1481.09 mGy-cm. Automated exposure control was utilized for the study. A dose lowering technique was utilized adhering to the principles of ALARA. CONTRAST: Patient received 85ml opti 320 of IV contrast COMPARISON: CT abdomen/pelvis on 05/03/2017 FINDINGS: Lung bases: Lower lung atelectasis. ABDOMEN: Liver: Unremarkable. No mass. Gallbladder and bile ducts: Unremarkable. No calcified stones. No ductal dilation. Pancreas: Unremarkable. No mass. No ductal dilation. Spleen: Unremarkable. No splenomegaly. Adrenals: Unremarkable. No mass. Kidneys and ureters: Nonspecific mild bilateral perinephric fat stranding. Small hypodensity in the right kidney is too small to definitively characterize. No hydronephrosis or obstructing stone. Stomach and bowel: Diverticulosis. Diverticulitis involving the mid descending colon. Evaluation of the stomach is limited by underdistention. Prominence of the jacques of the descending colon and sigmoid colon are otherwise probably secondary to underdistention. PELVIS: Appendix: Normal appendix. Bladder: Unremarkable. No mass. Reproductive: Unremarkable as visualized. ABDOMEN and PELVIS: Intraperitoneal space: Unremarkable. No free air. No significant fluid collection. Bones/joints: Degenerative changes at L5-S1. No acute fracture. No dislocation. Soft tissues: Nonspecific fat stranding in the left inguinal region. Small fat-containing umbilical hernia. Vasculature: Unremarkable. No abdominal aortic aneurysm. Lymph nodes: Mildly prominent left inguinal lymph nodes. IMPRESSION: 1. Diverticulosis. Diverticulitis involving the mid descending colon. 2. Nonspecific fat stranding in the left inguinal region. 3. Mildly prominent left inguinal lymph nodes. Electronically signed by: Uche Land M.D. 08/25/23 21:16 PM Code Status & VTE Plan VTE Prophylaxis Plan VTE Prophylaxis will be ordered: Yes
[2023-08-26] MEDS ORDERED: ONDANSETRON INJ 2 MG/ML 2 ML VIAL IV PRN (03:35)
[2023-08-26] MEDS: HYDROmorphone INJ 0.5 MG/0.5 ML SYR IV PRN ×5 (04:29→23:10)
[2023-08-26] MEDS ORDERED: PIPER/TAZO 4.5g in D5W MINI-B 100 ML IV ONE (04:30)
[2023-08-26] MEDS: D5W AND 1/2NSS 1,000 ML IV SCH ×2 (04:36→12:31)
--- NOTE | 2023-08-26 07:31 | Pharmacy Report ---
Pharmacy PK ABX Note - Date of Service August 26, 2023 - Assessment and Plan Assessment 37 year old M receiving Zosyn and vancomycin for treatment of diverticulitis and groin cellulitis. Hx MRSA. Was on Bactrim [employer]PER[employer] GRIPS for cellulitis. Plan Vancomycin * Loading dose: 1750 mg IV x 1 * Maintenance dose: 1750 mg IV every 12 hours * Regimen is predicted to achieve target AUC/ALISSA of 400-600 mg/L.hr * Random level ordered for tomorrow AM Pharmacy will continue to follow and will adjust dose/frequency as necessary. Thank you. Pharmacy has transitioned to AUC monitoring for vancomycin. AUC/ALISSA is the preferred PK/PD target and is associated with decreased risk of nephrotoxicity compared to traditional trough targets.
[2023-08-26 08:26] LABS: Creatinine Clr Calc Pharmacy 150.4 ml/min; Est GFR (African American) 133.7 ml/min; Est GFR (Non-African American) 115.3 ml/min
[2023-08-26] MEDS: ENOXAPARIN INJ 40 MG/0.4 ML SYR SQ SCH (09:22)
[2023-08-26] MEDS: VANCOMYCIN HCL 1,750 MG in SODIUM CHLORIDE 0.9% 500 ML IV SCH ×2 (09:23→23:05)
[2023-08-26] MEDS: ACETAMINOPHEN 325 MG TAB PO PRN ×2 (09:39→19:35)
[2023-08-26 09:45] LABS: Hematocrit (blood only) 37.3 % (42.0-52.0); Hemoglobin 13.5 g/dl (14.0-18.0); Mean Corpuscular Hemoglobin 31.3 pg (25.0-34.0); Mean Corpuscular Hgb Conc 36.2 g/dL (32.0-36.0); Mean Corpuscular Volume 86.5 fL (80.0-100.0); Mean Platelet Volume 11.2 fL (9.4-12.4); Platelet Count 239 K/uL (130-400); RDW Coefficient of Variation 11.9 % (11.5-14.5); RDW Standard Deviation 38.1 fL (36.4-46.3); Red Blood Count 4.31 M/uL (4.70-6.10)
[2023-08-26] MEDS ORDERED: LIDOCAINE 1%/EPINEPHRINE 1:100,000 20 ML VIAL INFIL ONE (10:15)
[2023-08-26] MEDS ORDERED: Nursing to Pharmacy Communication SCH (10:15)
[2023-08-26 10:20] LABS: Calcium 8.5 mg/dl (8.6-10.3); Magnesium 1.9 mg/dl (1.7-2.4); Potassium 3.8 mmol/L (3.5-5.1)
[2023-08-26 10:25] LABS: BUN Creatinine Ratio 9.9 (10-20); Creatinine Clr Calc Pharmacy 144.8 ml/min; Est GFR (African American) 131.6 ml/min; Est GFR (Non-African American) 113.5 ml/min; Phosphorus 2.3 mg/dl (2.5-4.9)
--- NOTE | 2023-08-26 11:36 | Operative Report ---
Post Operative Report Pre & Post Diagnosis left groin cellulitis with history of MRSA, ? abscess I identified the patient and participated in the time-out.: Yes Procedure incision and drainage of left groin abscess Surgeon Bibiana Rodgers MD Quantitative Analyst none Estimated Blood Loss 0 Findings Consistent with Post-Op Diagnosis no pus noted Specimens wound culture Anesthesia Type Local Complications none Indications 37 yr old man with history of MRSA now with left groin cellulitis on CT scan. ? area of abscess. Consent signed for drainage. Description of Procedure The left groin was prepped with betadine and draped. The area was numbed with 15 cc of 1% lidocaine with epi. A small incision was made over the visible punctum of prior ingrown hair. This was explored. Inflamed tissue was noted but no pus. Wound culture was taken. The wound was irrigated and then packed with iodoform. A sterile dressing was applied. He tolerated the procedure well. OK to remove packing in 24 hours and cover with dry dressing daily. I attest to the content of the Intraoperative Record and any orders documented therein. Any exceptions are noted below.
[2023-08-26] MEDS: PIPERACILLIN/TAZOBACTAM 4.5 GM in DEXTROSE 5% MINI-B 100 ML IV SCH ×2 (12:30→19:17)
[2023-08-27] MEDS: D5W AND 1/2NSS 1,000 ML IV SCH ×3 (01:48→18:14)
[2023-08-27] MEDS: PIPERACILLIN/TAZOBACTAM 4.5 GM in DEXTROSE 5% MINI-B 100 ML IV SCH ×3 (01:57→18:14)
[2023-08-27 07:29] LABS: BUN Creatinine Ratio 7.9 (10-20); Calcium 8.5 mg/dl (8.6-10.3); Creatinine Clr Calc Pharmacy 154.3 ml/min; Est GFR (African American) 135.1 ml/min; Est GFR (Non-African American) 116.6 ml/min; Magnesium 1.9 mg/dl (1.7-2.4); Potassium 3.5 mmol/L (3.5-5.1)
[2023-08-27 07:58] LABS: Hematocrit (blood only) 35.5 % (42.0-52.0); Hemoglobin 12.4 g/dl (14.0-18.0); Mean Corpuscular Hemoglobin 30.3 pg (25.0-34.0); Mean Corpuscular Hgb Conc 34.9 g/dL (32.0-36.0); Mean Corpuscular Volume 86.8 fL (80.0-100.0); Mean Platelet Volume 11.2 fL (9.4-12.4); Platelet Count 244 K/uL (130-400); RDW Coefficient of Variation 11.8 % (11.5-14.5); RDW Standard Deviation 37.6 fL (36.4-46.3); Red Blood Count 4.09 M/uL (4.70-6.10); White Blood Count 9.36 K/ul (4.8-10.8)
--- NOTE | 2023-08-27 08:37 | Pharmacy Report ---
Pharmacy PK ABX Note - Date of Service August 27, 2023 - Assessment and Plan Assessment 08/27: Reviewed vancomycin level, currently dosing predicting subtherapeutic with low probability of reaching goal AUC/ALISSA. Groin culture growing staph species (final identification and sensitivities pending). Will increase regimen for higher probability of reaching goal AUC/ALISSA 08/26: 37 year old M receiving Zosyn and vancomycin for treatment of diverticulitis and groin cellulitis. Hx MRSA. Was on Bactrim [employer] for cellulitis. Plan Vancomycin * Maintenance dose: 1500 mg IV every 8 hours * Regimen is predicted to achieve target AUC/ALISSA of 400-600 mg/L.hr with 92% probability of achieving goal * Random level ordered for tomorrow (08/28/23) AM prior to the 4th dose Pharmacy will continue to follow and will adjust dose/frequency as necessary. Thank you. Pharmacy has transitioned to AUC monitoring for vancomycin. AUC/ALISSA is the preferred PK/PD target and is associated with decreased risk of nephrotoxicity compared to traditional trough targets.
[2023-08-27] MEDS ORDERED: POTASSIUM PHOS 3 MMOL/1 ML INFUSION IV STA (08:38)
[2023-08-27] MEDS ORDERED: POTASSIUM PHOSPHATE 15 MMOL in SODIUM CHLORIDE 0.9% 250 ML IV ONE (09:00)
[2023-08-27] MEDS: ENOXAPARIN INJ 40 MG/0.4 ML SYR SQ SCH (09:00)
[2023-08-27] MEDS: VANCOMYCIN HCL 1,500 MG in SODIUM CHLORIDE 0.9% 500 ML IV SCH ×2 (10:51→18:14)
--- NOTE | 2023-08-27 12:49 | Surgery Progress Note ---
Date of Service August 27, 2023 Assessment & Plan (1) Cellulitis: Plan: con't IV abx through tomorrow if better possible discharge tomorrow on po abx Admission and Anticipated Discharge Date Admission Date: August 26, 2023 Subjective pain controlled no complaints Review of Systems Constitutional: no fever and no chills Genitourinary: no problem reported Integumentary: + lesions (redness better) Physical Exam Constitutional: WD/WN, vitals as above Respiratory: normal respiratory effort, lungs clear to auscultation Cardiovascular: RRR, no murmur, no edema Skin: no rashes, warm and dry small opening; some drainage without purulence; no fluctuance Results & Data Vital Signs (Past 12 Hours) Vital Signs Temp Pulse Resp BP Pulse Ox O2 Del Method 08/27/23 07:11 36.8 C 81 16 118/74 96 Room Air (1) Cellulitis Site of cellulitis: trunk Site of cellulitis of trunk: groin Qualified Code(s): L03.314 - Cellulitis of groin
--- NOTE | 2023-08-27 16:42 | Hospitalist Progress Note ---
Date of Service August 27, 2023 Assessment & Plan (1) Diverticulitis: Plan: 37-year-old male with past med significant for MRSA carrier presents with left groin cellulitis and diverticulitis. Patient noticed infection in his left groin on and called his PCP on Sunday and was prescribed Bactrim. But erythema in the groin was spreading and is getting worse and he also noticed pain in his left flank and left lower abdominal region and came to the ER. CT scan showing no obvious abscess but showing diverticulitis. Diverticulitis CT abdomen showed diverticulitis in mid descending colon Continue conservative management with IV zosyn Surgery on board Tolerated diet Continue pain controlled Left groin cellulitis MRSA carrier Surgery on board Small incision was made- showed Inflamed tissue was noted but no pus. Wound culture grew staph species Continue IV Zosyn and Vanco Plan to transition to PO on discharge Hyperglycemia Glucose 126 Will check hab1c DVT prophylaxis Lovenox Disposition Will discharge on medically stable Full code Admission and Anticipated Discharge Date Admission Date: August 26, 2023 Subjective Pt was seen and examined for follow up Lying in bed with no acute distress Pt said that he feels alot better He said that his abdominal pain improves He said that the left groin looks better He tolerated his diet denies any fever, chills, palpitation and N/V Review of Systems Review of Systems: All systems reviewed & are unremarkable except as noted in Subjective Physical Exam Physical Exam: General- No acute distress Head- atraumatic Eyes- PERRL, EOMI, ENT- oropharynx clear Neck- supple, no JVD Lungs- clear to auscultation Heart- regular rhythm; no murmur Abdomen- normal bowel sounds, +tender with palpation Extremities- left groin with dressing on Neuro- alert, oriented x 3; PERRL, EOMI; no facial palsy; no dysarthria Skin- warm & dry Results & Data Results & Data Vital Signs (Past 12 Hours) Vital Signs Temp Pulse Resp BP Pulse Ox O2 Del Method 08/27/23 15:10 37 C 73 124/81 98 Room Air 08/27/23 07:11 36.8 C 81 16 118/74 96 Room Air
[2023-08-27] MEDS: HYDROmorphone INJ 0.5 MG/0.5 ML SYR IV PRN (18:14)
[2023-08-28] MEDS: PIPERACILLIN/TAZOBACTAM 4.5 GM in DEXTROSE 5% MINI-B 100 ML IV SCH ×2 (01:30→08:54)
[2023-08-28] MEDS: D5W AND 1/2NSS 1,000 ML IV SCH ×2 (01:31→09:47)
[2023-08-28] MEDS: VANCOMYCIN HCL 1,500 MG in SODIUM CHLORIDE 0.9% 500 ML IV SCH ×2 (01:31→08:45)
[2023-08-28 05:36] LABS: Hematocrit (blood only) 35.8 % (42.0-52.0); Hemoglobin 12.2 g/dl (14.0-18.0); Mean Corpuscular Hemoglobin 29.9 pg (25.0-34.0); Mean Corpuscular Hgb Conc 34.1 g/dL (32.0-36.0); Mean Corpuscular Volume 87.7 fL (80.0-100.0); Mean Platelet Volume 10.3 fL (9.4-12.4); Platelet Count 255 K/uL (130-400); RDW Coefficient of Variation 11.6 % (11.5-14.5); RDW Standard Deviation 37.1 fL (36.4-46.3); Red Blood Count 4.08 M/uL (4.70-6.10); White Blood Count 6.31 K/ul (4.8-10.8)
[2023-08-28 05:51] LABS: BUN Creatinine Ratio 6.1 (10-20); Calcium 8.6 mg/dl (8.6-10.3); Est GFR (African American) 130.9 ml/min; Potassium 3.5 mmol/L (3.5-5.1)
[2023-08-28 07:47] LABS: Estimated Average Glucose 114 mg/dl; Hemoglobin A1C 5.6 % (4.5-5.6)
--- NOTE | 2023-08-28 08:39 | Pharmacy Report ---
Pharmacy PK ABX Note - Date of Service August 28, 2023 - Assessment and Plan Assessment 08/28: Reviewed vancomycin level which is predicting an AUC/ALISSA within goal range (96% that AUC is therapeutic). Groin culture growing MRSA (Vanc ALISSA=1). Blood cultures negative x48 hours. 08/27: Reviewed vancomycin level, currently dosing predicting subtherapeutic with low probability of reaching goal AUC/ALISSA. Groin culture growing staph species (final identification and sensitivities pending). Will increase regimen for higher probability of reaching goal AUC/ALISSA 08/26: 37 year old M receiving Zosyn and vancomycin for treatment of diverticulitis and groin cellulitis. Hx MRSA. Was on Bactrim [employer] for cellulitis. Plan Vancomycin * Maintenance dose: continue vancomycin 1500 mg IV every 8 hours * Regimen is predicted to achieve target AUC/ALISSA of 400-600 mg/L.hr with 96% probability of achieving goal * Vancomycin level to be ordered if vancomycin is continued or based on patient's clinical status. Pharmacy will continue to follow and will adjust dose/frequency as necessary. Thank you. Pharmacy has transitioned to AUC monitoring for vancomycin. AUC/ALISSA is the preferred PK/PD target and is associated with decreased risk of nephrotoxicity compared to traditional trough targets.
[2023-08-28] MEDS: ENOXAPARIN INJ 40 MG/0.4 ML SYR SQ SCH (08:54)
--- NOTE | 2023-08-28 12:26 | Surgery Progress Note ---
Date of Service August 28, 2023 Assessment & Plan (1) Cellulitis: Plan: OK to discharge daily dry dressing home on po antibiotics appt my clinic 2 weeks Admission and Anticipated Discharge Date Admission Date: August 26, 2023 Subjective doing well no complaints Review of Systems Constitutional: no fever and no chills Integumentary: pain improved left groin Physical Exam Constitutional: WD/WN, vitals as above Skin: swelling down; erythema resolving Results & Data Vital Signs (Past 12 Hours) Vital Signs Temp Pulse Resp BP Pulse Ox O2 Del Method 08/28/23 08:43 36.5 C 89 16 126/81 97 Room Air (1) Cellulitis Site of cellulitis: trunk Site of cellulitis of trunk: groin Qualified Code(s): L03.314 - Cellulitis of groin
--- NOTE | 2023-08-28 13:57 | Discharge Summary ---
Date of Service August 28, 2023 Admission HPI Per Admitting Provider 37-year-old male with past med history significant for MRSA carrier presents with left groin cellulitis and diverticulitis. Patient noticed infection in his left groin on and called his PCP on Sunday and was prescribed Bactrim. But erythema in the groin was spreading and is getting worse and he also noticed pain in his left flank and left lower abdominal region and came to the ER. CT scan showing no obvious abscess but showing diverticulitis. Except for pain in the infection area , no other complaints. Says bowel movements are small. Normal blader movements. No chest pain or shortness of breath. No cough. Has some headache. No blurred visions. No earache no runny nose no sore throat. Hemodynamically stable. Past medical history. As mentioned above Past surgical history. Colonoscopy. Dental surgery. Social history. Quit smoking 2015. Smoked 1 pack a day for 4 years. Alcohol 12 standard drinks of alcohol per week. No drug use. Family history. Father has arthritis. Diverticulitis. Mother has ulcerative colitis. Sister had depression. Admission Exam Per Admitting Provider General- Not in distress. Head- atraumatic Eyes- PERRL. ENT- oropharynx clear Neck- supple, no JVD Lungs- clear to auscultation no wheezing or crackles. Heart- regular rhythm; no murmur, no gallop. Abdomen- normal bowel sounds, soft, tenderness in right lower quadrant no distension. Extremities- no pretibial edema, no erythema seen. Neuro- alert, oriented x 3; PERRL, EOMI; no facial palsy; no dysarthria; moves extremities. Skin- erythema seen in left groin region Principal Diagnosis Diverticulitis Left groin cellulitis Hyperglycemia Discharge Exam General- No acute distress Head- atraumatic Eyes- PERRL, EOMI, ENT- oropharynx clear Neck- supple, no JVD Lungs- clear to auscultation Heart- regular rhythm; no murmur Abdomen- normal bowel sounds, +tender with palpation Extremities- left groin with dressing on Neuro- alert, oriented x 3; PERRL, EOMI; no facial palsy; no dysarthria Skin- warm & dry Discharge Data Allergies Allergy/AdvReac Type Severity Reaction Status Date / Time No Known Allergies Allergy Verified 12/07/19 19:31 Consultations 08/25/23 23:21 ED Decision to Admit Stat 08/26/23 08:00 Consult General Surgery Routine Ordered Studies 08/25/23 18:54 CT Abd and Pelvis [CT abd pelvis IV con only] Stat Laboratory Results WBC 6.31 K/ul (4.8-10.8) 08/28/23 05:18 RBC 4.08 M/uL (4.70-6.10) L 08/28/23 05:18 Hgb 12.2 g/dl (14.0-18.0) L 08/28/23 05:18 Hct 35.8 % (42.0-52.0) L 08/28/23 05:18 MCV 87.7 fL (80.0-100.0) 08/28/23 05:18 MCH 29.9 pg (25.0-34.0) 08/28/23 05:18 MCHC 34.1 g/dL (32.0-36.0) 08/28/23 05:18 RDW Std Deviation 37.1 fL (36.4-46.3) 08/28/23 05:18 RDW Coeff of Sean 11.6 % (11.5-14.5) 08/28/23 05:18 Plt Count 255 K/uL (130-400) 08/28/23 05:18 MPV 10.3 fL (9.4-12.4) 08/28/23 05:18 Immature Gran % (Auto) 0.5 % 08/25/23 19:02 Neut % (Auto) 80.7 % 08/25/23 19:02 Lymph % (Auto) 10.9 % 08/25/23 19:02 Routt % (Auto) 6.9 % 08/25/23 19:02 Eos % (Auto) 0.5 % 08/25/23 19:02 Baso % (Auto) 0.5 % 08/25/23 19:02 Neut # (Auto) 10.75 K/uL (1.40-6.50) H 08/25/23 19:02 Lymph # (Auto) 1.45 K/uL (1.20-3.40) 08/25/23 19:02 Routt # (Auto) 0.92 K/uL (0.11-0.59) H 08/25/23 19:02 Eos # (Auto) 0.07 K/uL (0.00-0.50) 08/25/23 19:02 Baso # (Auto) 0.07 K/uL (0.00-0.20) 08/25/23 19:02 Immature Gran # (Auto) 0.07 K/uL (0.01-0.20) 08/25/23 19:02 Sodium 140 mmol/L (136-145) 08/28/23 05:18 Potassium 3.5 mmol/L (3.5-5.1) 08/28/23 05:18 Chloride 107 mmol/L (98-107) 08/28/23 05:18 Carbon Dioxide 28 mmol/L (21-32) 08/28/23 05:18 Anion Gap 5 (3-11) 08/28/23 05:18 BUN 5 mg/dl (6-23) L 08/28/23 05:18 Creatinine 0.82 mg/dl (0.6-1.4) 08/28/23 05:18 Est Cr Clr Drug Dosing 143.0 ml/min 08/28/23 05:18 Est GFR ( Amer) 130.9 ml/min 08/28/23 05:18 Est GFR (Non-Af Amer) 113.0 ml/min 08/28/23 05:18 BUN/Creatinine Ratio 6.1 (10-20) L 08/28/23 05:18 Glucose 130 mg/dl (70-99(Fasting)) H 08/28/23 05:18 Estimat Average Glucose 114 mg/dl 08/28/23 05:18 Hemoglobin A1c 5.6 % (4.5-5.6) 08/28/23 05:18 Lactate 0.8 mmol/L (0.4-2.0) 08/25/23 19:02 Calcium 8.6 mg/dl (8.6-10.3) 08/28/23 05:18 Phosphorus 2.0 mg/dl (2.5-4.9) L 08/27/23 06:02 Magnesium 1.9 mg/dl (1.7-2.4) 08/27/23 06:02 Total Bilirubin 1.2 mg/dl (0.2-1.0) H 08/25/23 18:53 AST 12 U/L (13-39) L 08/25/23 18:53 ALT 13 U/L (7-52) 08/25/23 18:53 Alkaline Phosphatase 89 U/L (34-104) 08/25/23 18:53 Total Protein 7.2 gm/dl (6.0-8.3) 08/25/23 18:53 Albumin 4.5 gm/dl (3.4-5.0) 08/25/23 18:53 Globulin 2.7 gm/dl (2.5-4.0) 08/25/23 18:53 Albumin/Globulin Ratio 1.7 (0.9-2) 08/25/23 18:53 Procalcitonin < 0.05 ng/ml (0-0.5) 08/25/23 19:02 Random Vancomycin 23.8 mcg/ml (10-20) H 08/28/23 05:18 Impressions Abdomen/Pelvis CT 08/25/23 18:54 Exam(s): CT ABDOMEN + PELVIS With Contrast IV Amt: 85ml opti 320 EXAM: CT Abdomen and Pelvis With Intravenous Contrast CLINICAL HISTORY: Reason for exam: infection in groin. TECHNIQUE: Axial computed tomography images of the abdomen and pelvis with intravenous contrast. CTDI is 41 mGy and DLP is 1481.09 mGy-cm. Automated exposure control was utilized for the study. A dose lowering technique was utilized adhering to the principles of ALARA. CONTRAST: Patient received 85ml opti 320 of IV contrast COMPARISON: CT abdomen/pelvis on 05/03/2017 FINDINGS: Lung bases: Lower lung atelectasis. ABDOMEN: Liver: Unremarkable. No mass. Gallbladder and bile ducts: Unremarkable. No calcified stones. No ductal dilation. Pancreas: Unremarkable. No mass. No ductal dilation. Spleen: Unremarkable. No splenomegaly. Adrenals: Unremarkable. No mass. Kidneys and ureters: Nonspecific mild bilateral perinephric fat stranding. Small hypodensity in the right kidney is too small to definitively characterize. No hydronephrosis or obstructing stone. Stomach and bowel: Diverticulosis. Diverticulitis involving the mid descending colon. Evaluation of the stomach is limited by underdistention. Prominence of the jacques of the descending colon and sigmoid colon are otherwise probably secondary to underdistention. PELVIS: Appendix: Normal appendix. Bladder: Unremarkable. No mass. Reproductive: Unremarkable as visualized. ABDOMEN and PELVIS: Intraperitoneal space: Unremarkable. No free air. No significant fluid collection. Bones/joints: Degenerative changes at L5-S1. No acute fracture. No dislocation. Soft tissues: Nonspecific fat stranding in the left inguinal region. Small fat-containing umbilical hernia. Vasculature: Unremarkable. No abdominal aortic aneurysm. Lymph nodes: Mildly prominent left inguinal lymph nodes. IMPRESSION: 1. Diverticulosis. Diverticulitis involving the mid descending colon. 2. Nonspecific fat stranding in the left inguinal region. 3. Mildly prominent left inguinal lymph nodes. Electronically signed by: Uche Land M.D. 08/25/23 21:16 PM Hospital Course (1) Diverticulitis: 37-year-old male with past med significant for MRSA carrier presents with left g roin cellulitis and diverticulitis. Patient noticed infection in his left groin on and called his PCP on Sunday and was prescribed Bactrim. But erythema in the groin was spreading and is getting worse and he also noticed pain in his left flank and left lower abdominal region and came to the ER. CT scan showing no obvious abscess but showing diverticulitis. Diverticulitis CT abdomen showed diverticulitis in mid descending colon Continue conservative management with IV zosyn Surgery on board Tolerated diet Continue pain controlled Left groin cellulitis MRSA carrier Surgery on board Small incision was made- showed Inflamed tissue was noted but no pus. Wound culture grew staph species Continue IV Zosyn and Vanco Plan to transition to PO on discharge Hyperglycemia Glucose 126 Will check hab1c DVT prophylaxis Lovenox Disposition Will discharge on medically stable Full code Total Time Total Time Spent Total Time Spent (In Minutes): 35 minutes Discharge Plan Discharge Items Patient Disposition: Home - Self-Care Reason For Visit: LEFT GROIN CELLULITIS, DIVERTICULITIS Discharge Diagnosis: Diverticulitis Left groin cellulitis Activity: Resume your previous activity Lifting: Gradually increase as tolerated Non-emergency contact: Primary Care Provider and Surgeon Call non-emergency contact if: you have any medication questions, your symptoms worsen, your pain is not controlled, your temperature is above 101, your wound has increased redness, your wound has increased drainage and your wound pain has increased Follow-up/Referrals: John Murillo MD [Primary Care Provider] - 09/04/23 11:00 am (Date & Time 09/04/2023 11:00 AM Provider John Murillo MD Department [facility] ) Diet: Regular Addtl Attending Provider Instructions: Follow up with your primary care provider 09/04/2023 @ 11:00 AM John Murillo MD Department [facility] Follow up with Surgery in 2 weeks ( please call to schedule for the appointment) Continue daily dressing and keep area clean Seek medical attention if wound worsening Complete the course of the antibiotic with Doxycycline and Augmentin Pending Studies at Discharge: No Stand-Alone Forms: My [facility], Smoking Cessation Medications and DC Order Prescriptions: New amoxicillin-pot clavulanate 875-125 mg tablet 1 tab PO Q12H Qty: 6 0RF Discontinued sulfamethoxazole-trimethoprim [Bactrim DS] 800-160 mg tablet 1 tab PO Q12H Qty: 20 0RF Discharge Orders: Discharge Order (Routine); Ordered 08/28/23 Ordered By: Austin Castro Admission Data Admit Date/Time: 08/26/23 01:58 Attending Provider: Austin Castro Admit Provider: Marky Thomas Primary Care Provider: John Murillo Other Providers: Marky Thomas; Jesús Hager; Micheal Ricks; Bibiana Rodgers; Shaan Pedroza; Jong Barber; Marixa Mead; Nadya Victoria; Domingo Blanca Jr; Luh Campos; Balbir Inman; Radha White; Manuel Boyle Other Interventions: Discharge Summary Assessment (RN) Last Done: 08/28/23 14:01
== END 2023-08-28 14:47 | disposition home or self-care (01) | DRG 603 ==
LOC: ED 17:56 → SUATTDRO 08-26 01:58 → 3W 08-26 01:58